=== PATIENT | male | born 1960 | race Caucasian/White ===

== ENCOUNTER 2022-05-19 12:10 | Inpatient (IN) | payer OTHER ==
[~2022-05-19] VITALS: Ht 177.8 cm; Wt 149.3 kg
[~2022-05-19 12:10] MED LIST: CYCL10 PO; HYDACE5 PO; IBUP800 PO
[2022-05-19 12:33] LABS: Hemoglobin 22.3 g/dL (13.5-17.5); IMMATURE GRAN ABSOLUTE AUTO 0.06 K/mm3 (0.00-0.10); IMMATURE GRAN PERCENT AUTO 0 % (0-1); Mean Corpuscular HGB 32.8 pg (26.0-34.0); Mean Corpuscular HGB Conc 31.9 g/dL (31.5-36.5); Mean Corpuscular Volume 103 fL (80-100); Mean Platelet Volume 9.9 fL (9.1-12.4); NRBC ABSOLUTE 0.03 K/mm3 (0.00-0.02); NRBC Auto 0.2 /100 WBC (0.0-0.2); Platelet Count 187 K/mm3 (150-400); RDW Standard Deviation 58.2 fL (35.1-46.3); Red Blood Cell Count 6.79 M/mm3 (4.30-5.90); White Blood Cell Count 13.46 K/mm3 (4.00-11.30)
[2022-05-19 12:40] LABS: PO2 Arterial 84.2 mmHg (80-100)
[2022-05-19 12:42] LABS: PCO2 Arterial 94.8 mmHg (35-45); pH Blood Arterial 7.23 (7.35-7.45)
[2022-05-19 13:11] LABS: Influenza A, PCR NEGATIVE (NEGATIVE); Influenza B, PCR NEGATIVE (NEGATIVE); Resp Syncytial Virus, PCR NEGATIVE (NEGATIVE); SARS-Cov-2 (COVID-19) PCR, MMC NEGATIVE (NEGATIVE)
[2022-05-19 13:13] LABS: BAND PERCENT MAN 1 % (0-8); BASOPHILS PERCENT MAN 0 % (0-2); EOSINOPHILS PERCENT MAN 0 % (0-6); LYMPHOCYTES % ATYPICAL MANUAL 3 % (0-0); LYMPHOCYTES PERCENT MAN 6 % (21-46); MONOCYTES PERCENT MAN 4 % (4-13); SEG NEUTROPHILS PERCENT MAN 86 % (41-73); TOTAL CELLS COUNTED 100
[2022-05-19 13:18] LABS: Source, Urine Foley catheter
[2022-05-19 13:18] LABS: BASOPHILS ABSOLUTE AUTO 0.03 K/mm3 (0.00-0.23); BASOPHILS PERCENT AUTO 0 % (0-2)
[2022-05-19 13:23] LABS: Appearance, Urine Cloudy (Clear); Blood, Urine 5+ (Neg); Color, Urine Brown (P-Yellow); Glucose Qualitative, Urine Neg (Neg); Ketones, Urine 2+ (Neg); Leukocyte Esterase, Urine 2+ (Neg); Nitrite, Urine Pos (Neg); Protein, Urine 4+ (Neg); Specific Gravity, Urine 1.015 (1.003-1.022); Urobilinogen, Urine 3+ (Normal)
[2022-05-19 13:30] LABS: Bilirubin, Urine 2+ (Neg)
[2022-05-19 13:30] LABS: Ethanol (Alcohol), Blood, Med <3 mg/dL; Magnesium, Blood 1.8 mg/dL (1.6-2.4)
[2022-05-19 13:31] LABS: Granular Casts 25-50 /lpf (0); White Blood Cells, Urine 50-100 /hpf (0-5)
[2022-05-19 13:32] LABS: Bacteria Many /hpf; Squamous Epithelial Cells Rare /hpf (Few); Transitional Epithelial Cells Few /hpf (0-Rare)
[2022-05-19 13:42] LABS: U Amphetamine Screen DETECTED; U Barbituate Screen Not Detected; U Benzodiazapine Screen Not Detected; U Buprenorphine Screen Not Detected; U Cannabinoids Screen DETECTED; U Cocaine Screen Not Detected; U Methadone Screen Not Detected; U Methamphetamine Screen DETECTED; U Opiates Screen Not Detected; U Oxycodone Screen Not Detected; U Phencyclidine Screen Not Detected; U Propoxyphene Screen Not Detected
[2022-05-19 14:02] LABS: Alanine Aminotransfer (ALT/SGP 53 U/L (12-78); Albumin, Blood 3.2 g/dL (3.4-5.0); Albumin/Globulin Ratio 0.8 (0.8-1.8); Alk Phos 122 U/L (50-136); Anion Gap 7 mmol/L (6-16); Aspartate Aminotrans (AST/SGOT 228 U/L (12-37); Bilirubin, Total 1.5 mg/dL (0.1-1.0); Blood Urea Nitrogen 23 mg/dL (8-24); Bun/Creatinine Ratio 32.2 (12.0-20.0); CO2, Blood 35 mmol/L (21-32); CPK Creatine Kinase 5216 U/L (39-308); Calcium, Blood 8.8 mg/dL (8.5-10.1); Chloride, Blood 97 mmol/L (98-108); Creatinine, Blood 0.71 mg/dL (0.60-1.20); Globulin, Blood 4.2 g/dL (2.2-4.0); Glomerular Filtration Rate 105 (60-); Glucose, Blood 106 mg/dL (70-99); Potassium, Blood 4.9 mmol/L (3.5-5.5); Sodium, Blood 139 mmol/L (136-145); Total Protein, Blood 7.4 g/dL (6.4-8.2)
[2022-05-19 14:38] LABS: Creatine Kinase MB 172.1 ng/mL (0.0-3.6); Creatine Kinase MB Index 3.3 (0.0-4.0)
--- NOTE | 2022-05-19 19:04 | NUR ---
Admit Note Received report from eric Stanley in ed. Pt to room via gurney, 4 person transfer assist with slider sheet at approx 1830. Pt to room on bipap, 16/04 bur 10 Fio2 50%, spo2 85-87%, titrated fio2 to 65%, titrated down to 60%, spo2 >90%. Pt following direction, not opening eyes or answering questions, mumbles at times. Pt body is flushed, with scabs, bruising and pustules noted. tolliver in place patent and draining. Tele sinus tach. Other Vss. No other acute changes noted. report given to oncoming rn.
[2022-05-19 19:05] LABS: Base Excess Venous 6.3 mmol/L; Bicarbonate Venous 25.9 mmol/L (24.0-30.0); PCO2 Venous 78.5 mmHg (38-42); pH Blood Venous 7.24 (7.34-7.37)
--- NOTE | 2022-05-19 22:22 | NUR ---
PATIENT ARRIVED TO ICU 14 VIA BED FROM PCU, PATIENT REMAINING PCU STATUS AT THIS TIME. PATIENT TRANSFER TO ICU BED USING SLIDER SHEET, PATIENT ATTEMPTING TO ASSIST WITH REPOSITIONING. AWAKENS TO VERBAL STIMULI FOLLOWING SIMPLE DIRECTIONS. JOHNSON. EYES AND FACE RED AND SWOLLEN. MULTIPLE BRUISING AND SCABS TO BODY, ABRASION TO LEFT SIDE. LEFT FOOT COLD TO TOUCH POOR CAP REFILL DOPPLER PULSES FOUND. RIGHT FOOT SWOLLEN AND BRIGHT RED, HOT TO TOUCH ALSO HAS DOPPLER PULSES. BIPAP 22/12 FIO2 60% IN PLACE. LUNG SOUNDS DECREASED T/O.
--- NOTE | 2022-05-19 22:28 | NUR ---
KRISTIAN (SISTER) NOTIFIED OF PT TRANSFERIGN TO ICU.
--- NOTE | 2022-05-20 00:09 | NUR ---
SHORT BREAK FROM BIPAP FOR ORAL CARE AND TO SWITCH NASAL PROBE TO LEFT NARE FROM RIGHT NARE. PLACED ON 5L/NC FOR ORAL CARE. PATIENT MO WELL. CONTINUES TO FOLLOW DIRECTIONS BUT FALLING BACK TO SLEEP EASILY
--- NOTE | 2022-05-20 02:14 | NUR ---
PATIENT AWAKE, REQUESTING SOMETHING TO DRINK AND C/O FEELING HOT. PATIENT WARM TO TOUCH AND DIAPHORETIC. GIVEN SHORT BREAK FROM BIPAP AND PLACED ON 5L/NC. PATIENT ABLE TO COUGH UP LARGE AMT OF CREAMY YELLOW SPUTUM. SAMPLE SENT TO LAB. VERBAL EASIER TO UNDERSTAND. WHEN ASKED WHAT HAPPENED PATIENT VERBALIZED THAT HE "TOOK TO MUCH DRUGS" WHEN ASKED HOW OFTEN HE TAKES METH PATIENT STATES "DAILY, BUT I DON'T DRINK" PATIENT AGREES TO REPLACE BIPAP TURNED HEATER OFF AND PLACED FAN IN ROOM
[2022-05-20 03:45] LABS: Base Excess Venous 5.1 mmol/L; Bicarbonate Venous 26.1 mmol/L (24.0-30.0); PCO2 Venous 64.7 mmHg (38-42)
[2022-05-20 03:48] LABS: Hemoglobin 20.4 g/dL (13.5-17.5); Mean Corpuscular HGB 32.9 pg (26.0-34.0); Mean Corpuscular HGB Conc 31.1 g/dL (31.5-36.5); Mean Corpuscular Volume 106 fL (80-100); Mean Platelet Volume 10.3 fL (9.1-12.4); Platelet Count 180 K/mm3 (150-400); RDW Coefficient Variation 16.5 % (11.7-14.2); RDW Standard Deviation 61.9 fL (35.1-46.3); White Blood Cell Count 12.37 K/mm3 (4.00-11.30)
[2022-05-20 04:07] LABS: Hematocrit 65.7 % (37.0-53.0)
[2022-05-20 04:15] LABS: Thyroxine (T4) 5.8 ug/dL (4.5-12.1)
[2022-05-20 04:35] LABS: Albumin, Blood 2.4 g/dL (3.4-5.0); Albumin/Globulin Ratio 0.6 (0.8-1.8); Bilirubin, Total 1.1 mg/dL (0.1-1.0); Bun/Creatinine Ratio 37.8 (12.0-20.0); Calcium, Blood 8.1 mg/dL (8.5-10.1); Creatinine, Blood 0.74 mg/dL (0.60-1.20); Globulin, Blood 4.1 g/dL (2.2-4.0); Potassium, Blood 4.2 mmol/L (3.5-5.5); Total Protein, Blood 6.5 g/dL (6.4-8.2)
--- NOTE | 2022-05-20 06:31 | NUR ---
SUMMARY PATIENT RESTING QUIETLY WITH BIPAP 22/12 FIO2 60% IN PLACE. ON 5L/NC DURING SHORT BREAK FOR ORAL CARE. PATIENT MORE AWAKE NIGHT PROGRESSED. ABLE TO ASSIST WITH REPOSITIONING, BRUSH HIS OWN TEETH WITH SUCTION TOOTHBRUSH, AND SUCTIONING HIS MOUTH OUT AFTER COUGHING WITH THICK CREAMY YELLOW SPUTUM PRODUCTION. CHAVEZ CONTINUES TO DRAIN DARK MAXWELL URINE. PERIPHERAL PERFUSION BETTER, RIGHT FOOT CONTINUES TO BE BRIGHT RED AND HOT, LEFT FOOT NOW WARM. PEDAL PULSES CONTINUE TO BE DOPPLER.
--- NOTE | 2022-05-20 17:26 | NUR ---
SHIFT SUMMARY/TRANSFER NOTE PT REMAINED ALERT TO SELF, PLACE AND FAMILY BUT DID NOT KNOW DAY, HIS MENTATION APPEARED TO IMPROVE BEING THAT HE WAS ABLE TO REPORT REMEMBERING THAT HIS NIECE WAS AT BEDSIDE AND HE ALSO REMEMBERED THAT HE MISSED BREAKFAST. SPO2 MAINTAINED >93% VIA BIPAP, PRESSURE 20/12 W/ FIO2 30-35%. PT WAS ALSO ABLE TO TOLERATE 5L NC W/ SPO2 >93% FOR ORAL CARE AND MEALS. HR WAS ST 90-100, HE CONTINUED TO DENY CHEST PAIN/PRESSURE. HE REMAINED AFEBRILE. HE REPORTED PAIN THIS AM 7/10 IN HIS LEGS AND HIS PENIS, TYLENOL GIVEN AND PT STILL REPORTED 7/10 PAIN DURING TYLENOL ASSESSMENT BUT APPEARED COMFORTABLE AND WAS ABLE TO SLEEP ON AND OFF DURING SHIFT. THIS AM PT FULLED AT CHAVEZ CATHETER, MINOR TRAUMA NOTED W/ SCANT AMOUNT OF BLEEDING BUT CHAVEZ CATHETER REMAINED IN PLACE AND DRAINING TO GRAVITY DARK YELLOW OUTPUT. BLEEDING FROM PENIS ALSO CEASED AND LATER IN SHIFT PT DENIED PAIN. Q2 TURNING IMPLIMENTED TO PREVENT SKIN BREAKDOWN. ARSEN POWERGLIDE WAS INFUSING NS @ 75ML/HR PER ORDERS. 20G IN LEFT AC WAS SALINE LOCKED, 22G IN R WRIST ALSO SALINE LOCKED. NO OTHER ACUTE CHANGES NOTED. REPORT GIVEN TO ELIU CARLSON RN AND PT TRANSFERED TO [facility] VIA HOSPITAL BED ON 5L NC.
--- NOTE | 2022-05-20 17:37 | NUR ---
CARE NOTE THIS NURSE PLACED CALL TO PT SISTER GRACIE TO NOTIFY NEXT HER OF PT TRANSFER TO [facility], THERE WAS NO VOICEMAIL SET UP AND NO ANSWER.
[2022-05-21 04:36] LABS: Hemoglobin 18.9 g/dL (13.5-17.5); Mean Corpuscular HGB 32.6 pg (26.0-34.0); Mean Corpuscular HGB Conc 30.9 g/dL (31.5-36.5); Mean Corpuscular Volume 106 fL (80-100); Mean Platelet Volume 10.1 fL (9.1-12.4); Platelet Count 162 K/mm3 (150-400); RDW Coefficient Variation 15.6 % (11.7-14.2); RDW Standard Deviation 61.3 fL (35.1-46.3); Red Blood Cell Count 5.79 M/mm3 (4.30-5.90)
[2022-05-21 04:43] LABS: Hematocrit 61.1 % (37.0-53.0)
--- NOTE | 2022-05-21 04:46 | NUR ---
PT IS ORIENTED X 2, DROWSY BUT ABLE TO AROUSE WITH NOISE. O2 SATS FLUCTUATING BETWEEN 88-92% ON BIPAP. SETTINGS NOW 18/10 AT 45% WITH SATS > 92%. HR ST IN LOW 100'S. DENIES CHEST PAIN. GENERALIZED EDEMA 1-2+. ARMS ELEVATED TO DECREASE 2+ SWELLING. IV X 2 AND POWERFLYDE FLUSH EASILY WITHOUT PAIN, NO REDDNESS NOTED AT INSERTION SITE, NO BLOOD RETURN RECEIVED. REPOSITIONED PT FOR COMFORT WITH SLING AND CEILING LIFT. CHAVEZ CATHETER IN PLACE DRAINING DARK, YELLOW URINE.
[2022-05-21 04:59] LABS: Bun/Creatinine Ratio 31.1 (12.0-20.0); Calcium, Blood 8.4 mg/dL (8.5-10.1); Creatinine, Blood 0.51 mg/dL (0.60-1.20); Potassium, Blood 4.1 mmol/L (3.5-5.5)
--- NOTE | 2022-05-21 17:21 | NUR ---
NO ACUTE CHANGES T/O THE SHIFT, PT ON AN OFF BIPAP. O2 NEEDS INCREASED TO 50% FIO2 ON BIPAP OR 10L OXYMIZER CANNULA TO MAINTAIN SP02>92%. PT NOTED TO BE DROWSY T/O THE DAY, EASILY AWOKEN, PT FOLLOWING COMMANDS, ABLE TO FEED SELF WITH SUPERVISION. SEE DOCUMENTED VS AND ASSESSMENT. CHAVEZ CATHETER REMOVED, PT INCONTINENT OF URINE, BREIF IN PLACE. WILL CONTINUE TO MONITOR AND GIVE REPORT TO NOC SHIFT RN.
[2022-05-22 03:52] LABS: Base Excess Venous 12.3 mmol/L; Bicarbonate Venous 30.6 mmol/L (24.0-30.0); PCO2 Venous 84.6 mmHg (38-42)
[2022-05-22 03:53] LABS: pH Blood Venous 7.27 (7.34-7.37)
[2022-05-22 03:58] LABS: BASOPHILS ABSOLUTE AUTO 0.04 K/mm3 (0.00-0.23); BASOPHILS PERCENT AUTO 0 % (0-2); EOSINOPHILS ABSOLUTE AUTO 0.19 K/mm3 (0.00-0.68); EOSINOPHILS PERCENT AUTO 2 % (0-6); Hemoglobin 18.9 g/dL (13.5-17.5); IMMATURE GRAN ABSOLUTE AUTO 0.02 K/mm3 (0.00-0.10); IMMATURE GRAN PERCENT AUTO 0 % (0-1); LYMPHOCYTES ABSOLUTE AUTO 1.12 K/mm3 (0.84-5.20); LYMPHOCYTES PERCENT AUTO 13 % (21-46); MONOCYTES ABSOLUTE AUTO 0.68 K/mm3 (0.16-1.47); MONOCYTES PERCENT AUTO 8 % (4-13); Mean Corpuscular HGB 32.8 pg (26.0-34.0); Mean Corpuscular HGB Conc 30.7 g/dL (31.5-36.5); Mean Corpuscular Volume 107 fL (80-100); Mean Platelet Volume 10.2 fL (9.1-12.4); NEUTROPHILS ABSOLUTE AUTO 6.88 K/mm3 (1.96-9.15); NEUTROPHILS PERCENT AUTO 77 % (41-73); Platelet Count 142 K/mm3 (150-400); RDW Coefficient Variation 15.4 % (11.7-14.2); RDW Standard Deviation 61.7 fL (35.1-46.3); Red Blood Cell Count 5.76 M/mm3 (4.30-5.90); White Blood Cell Count 8.93 K/mm3 (4.00-11.30)
[2022-05-22 04:07] LABS: Hematocrit 61.6 % (37.0-53.0)
[2022-05-22 04:48] LABS: Bun/Creatinine Ratio 27.7 (12.0-20.0); Calcium, Blood 8.5 mg/dL (8.5-10.1); Creatinine, Blood 0.47 mg/dL (0.60-1.20); Potassium, Blood 4.4 mmol/L (3.5-5.5); Thyroid Stimulating Hormone 1.79 uIU/mL (0.360-4.800)
--- NOTE | 2022-05-22 05:58 | NUR ---
NEURO/ADL: Assumed care of pt at 1900. A/Ox4 but shows confusion at times. Very mumbled/garbled speech. This progressed to patient only moaning and not being redirectable. Critical VBG pH this AM called in to Dr with new orders for repeat VBG in a few hours as RT adjusted settings. Constant moaning/groaning and moving when awake. RESP: Maintains over 92% on 10L Oxymizer or Bipap 18/10/50%., however settings changed after critical pH to 22/10/40% for which he sats 90-93%. Desats into mid 70's w/o O2, recovers quickly. LS dim t/o with coarse lower lobes bl. Tachypnea. Moist cough, able to expectorate and swallows. CARD: ST on tele low 100's. Denies CP/pressure. Faint +1 radial pulses, and doppler pedal pulses. BLE and BUE 2+ pitting edema bl, 1+ edema in face and abdomen. URINARY: Urinary incontinence with dark yellow urine noted. Attends in place, purewick added in attempts to get accurate I/O's. INTEG: Red/richy skin color t/o. Cyanotic nail beds. Abrasions and scabs noted t/o. Dr notified of scabbing pattern, Dr saw patient and placed pt in contact precautions for scabies. Permethrin ordered and applied. Orders to have dayshift bathe him, will pass this along. Blistering on abdomen and rash noted t/o. See chart for photos. Will report to dayshift RN.
[2022-05-22 06:32] LABS: Bicarbonate Venous 29.7 mmol/L (24.0-30.0); PCO2 Venous 92.4 mmHg (38-42); pH Blood Venous 7.24 (7.34-7.37)
--- NOTE | 2022-05-22 07:20 | NUR ---
INITIAL ASSESSMENT: Patient is lying in bed with his eyes closed constantly moving around. He is oriented to self only. HRR, SR in the 90s. LS DIM T/O and coarse in the bases. Patient is on the Bi-Pap settings 20/10 with FIO2 40%, biox in the mid 90s. Per the fast food shift supervisor RN patients VBG and chest X-RAY look worse this AM. BT hypoactive this am. PPP. Patient has scratches and blisters scattered through out his body. MD thinks the patient has scabies on his left wrist area, he has scattered small blisters on the top of his right wrist. Maurice placed, patent and draining clear yellow urine. Resp therapy at the bedside attempting to fix the patients seal on the mask. Bed in low position, will continue to monitor.
[2022-05-22 07:49] LABS: Source, Urine Foley catheter
[2022-05-22 07:52] LABS: Appearance, Urine Hazy (Clear); Bilirubin, Urine Neg (Neg); Blood, Urine 3+ (Neg); Color, Urine Yellow (P-Yellow); Glucose Qualitative, Urine Neg (Neg); Ketones, Urine Neg (Neg); Leukocyte Esterase, Urine Neg (Neg); Nitrite, Urine Neg (Neg); Protein, Urine 2+ (Neg); Urobilinogen, Urine NORM (Normal)
[2022-05-22 08:01] LABS: Squamous Epithelial Cells Many /hpf (Few)
[2022-05-22 08:02] LABS: Bacteria Many /hpf
[2022-05-22 08:03] LABS: Hyaline Casts 0-2 /lpf (0-2); Mucus Heavy (0-Heavy)
--- NOTE | 2022-05-22 09:45 | NUR ---
Update: Dr. Farfan has been by to see the patient. RT is concerned we are not able to keep the patients masks on and have positive pressure with the way he is moving and pulling at everything. Patient is transferred to ICU via bed. report given to Odette EMBROIDERY WORKER.
--- NOTE | 2022-05-22 09:46 | NUR ---
Patient received from PCU for escalation of care RE poor blood gas results and pt inability to keep BiPAP on. Communication Skills Instructor consulted. On arrival pt wearing BiPAP 22/10 and 40% FiO2. SpO2 90% or greater. Transferred to ICU bed using ceiling lift. Pt agitated and attempting to escape sling. Transported to bed safely. Pt's agitation continues in bed. Unable to effectively communicate needs. Precedex started. BUE soft wrist restraints applied. Bryant RN in room to assess for PICC line. SR per monitor. BP stable.
[2022-05-22 10:41] LABS: PO2 Arterial 62.9 mmHg (80-100)
[2022-05-22 10:42] LABS: pH Blood Arterial 7.28 (7.35-7.45)
[2022-05-22 10:43] LABS: PCO2 Arterial 90.8 mmHg (35-45)
--- NOTE | 2022-05-22 13:12 | NUR ---
EKG performed as there was ST elevation on telemetry. 12 lead EKG shows less than [address] elevation in lead II only. This is present on previous EKG.
--- NOTE | 2022-05-22 17:05 | NUR ---
SUMMARY This shift, patient was transfer from PCU 1 to ICU 7. Neuro/Musc: Precedex at 1 mcg/kg/hr. Pt is responsive to verbal stimulus. Able to follow simple commands. Speech is largely incomprehensible. Pt in bilateral soft wrist restraints to prevent BiPAP removal. 3 mm pupils, PERRL. Moves all extremities with equal strength and range of motion. Requires total care and ceiling lift for Q2H repositioning. Respiratory: BiPAP 22/10, 45% FiO2, set rate 20. Dry, nonproductive cough. Diminished lung sounds t/o. Cardiac: SR per monitor. Rate 68. BP stable. Capillary refill less than 3 seconds BUE and BLE. Generalized nonpitting edema. GI: NPO due to BiPAP dependence. Hypoactive BT in all quadrants. : Maurice catheter in place with output of rhonda urine. Skin: Scattered scratches, superficial wounds, and pustules. Thorough chlorhexidine bath given today. Oral care with suction swabs 1200 and 1600. Psychosocial: Family updated.
--- NOTE | 2022-05-22 21:13 | NUR ---
NOTED PT SWEATY. DENIES PAIN. ST ELEVATION ON MONITOR - EKG PERFORMED. NOTIFIED TROP AND K LAB ORDERED.
--- NOTE | 2022-05-22 22:30 | NUR ---
DR. CORREIA NOTIFIED OF LOW UO AND UPDATED ON LAB RESULTS
[2022-05-23 03:21] LABS: BASOPHILS ABSOLUTE AUTO 0.03 K/mm3 (0.00-0.23); BASOPHILS PERCENT AUTO 1 % (0-2); EOSINOPHILS ABSOLUTE AUTO 0.01 K/mm3 (0.00-0.68); EOSINOPHILS PERCENT AUTO 0 % (0-6); Hemoglobin 19.3 g/dL (13.5-17.5); IMMATURE GRAN ABSOLUTE AUTO 0.02 K/mm3 (0.00-0.10); IMMATURE GRAN PERCENT AUTO 0 % (0-1); LYMPHOCYTES ABSOLUTE AUTO 0.45 K/mm3 (0.84-5.20); LYMPHOCYTES PERCENT AUTO 7 % (21-46); MONOCYTES ABSOLUTE AUTO 0.12 K/mm3 (0.16-1.47); MONOCYTES PERCENT AUTO 2 % (4-13); Mean Corpuscular HGB 32.4 pg (26.0-34.0); Mean Corpuscular HGB Conc 30.8 g/dL (31.5-36.5); Mean Corpuscular Volume 105 fL (80-100); Mean Platelet Volume 10.5 fL (9.1-12.4); NEUTROPHILS ABSOLUTE AUTO 5.56 K/mm3 (1.96-9.15); NEUTROPHILS PERCENT AUTO 90 % (41-73); Platelet Count 151 K/mm3 (150-400); RDW Coefficient Variation 14.8 % (11.7-14.2); RDW Standard Deviation 58.7 fL (35.1-46.3); Red Blood Cell Count 5.96 M/mm3 (4.30-5.90); White Blood Cell Count 6.19 K/mm3 (4.00-11.30)
[2022-05-23 03:24] LABS: Hematocrit 62.6 % (37.0-53.0)
[2022-05-23 03:37] LABS: Bun/Creatinine Ratio 41.5 (12.0-20.0); Calcium, Blood 8.9 mg/dL (8.5-10.1); Creatinine, Blood 0.39 mg/dL (0.60-1.20); Potassium, Blood 5.7 mmol/L (3.5-5.5)
[2022-05-23 04:06] LABS: PCO2 Arterial 68.5 mmHg (35-45); PO2 Arterial 71.8 mmHg (80-100); pH Blood Arterial 7.36 (7.35-7.45)
--- NOTE | 2022-05-23 06:42 | NUR ---
PT A&OX3 - DISORIENTED TO TIME. INTERMITTENTLY PT CONFUSED FIGHTING RESTRAINTS, PULLING LINES - UNABLE TO REDIRECT BEHAVIORS. SYSTOLIC 120'S AFEBRILE LUNGS DIMINISHED ALL LOBES. ON BIPAP OVERNIGHT MANAGED BY RT CHAVEZ COLLECTING CLEAR/YELLOW URINE Q2 TURNS BONY PROMINENCES PROTECTED AND OFFLOADED. PT FREQUENTLY TURNS SELF IN BED FAMILY CALLED AND UPDATED OVER THE PHONE
--- NOTE | 2022-05-23 07:20 | NUR ---
ASSUMED CARE OF PT AT 0700 PT SLEEPING WITH BIPAP IN PLACE AT THIS TIME. PRECEDEX RUNNING AT 0.8 MCG/KG/MIN, NS RUNNING AT 75 MLS/HR. CHAVEZ DRAINING TO GRAVITY. SEE ASSESSMENT FOR FURTHER DETAILS.
--- NOTE | 2022-05-23 12:15 | NUR ---
PT FAMILY IN ROOM AT TIME OF MEDICATION ADMINISTRATION. PT HAS BEEN PARANOID WITH ALL TREATMENT THIS AM, EVEN WITH RT. PT FAMILY MEMBER DEMANDED THAT I LEAVE THE ROOM BECAUSE THE PT IS "FREAKING OUT". I CALMLY REASERTED TO THE PATIENT MY NAME AND THAT I AM HIS NURSE GIVING HIM HIS MEDICATION. I ALSO STATED TO THE FAMILY THAT THIS BEHAVIOR IS NOT NEW OF THE PT AND THAT WE NEED TO STILL GIVE HIS TREATMENT HE NEEDS IT. THIS NURSE WAS EXITING THE ROOM THE FAMILY MEMBER STATED "I SEE WHY YOU DO NOT LIKE HER". THIS RN FIRMLY STATED THAT WE NEED TO ENCOURAGE PT OF STAFF HELPING HIM AND ARE NOT OUT TO GET HIM. THIS RN ALSO STATED THAT HER BEHAVIOR WAS NOT APPROPRIATE TOWARDS STAFF AND WOULD FURTHER NEED ACTION IF IT CONTINUES. FAMILY MEMBER CAME OUT OF ROOM AND APOLOGIZED TO THIS RN IN FRONT OF DINKEY OPERATOR AND PHILIPPE SANDY.
--- NOTE | 2022-05-23 13:00 | NUR ---
PT TORE OFF BIPAP MASK AND LINES. YELLING OUT AT STAFF. PHILIPPE SANDY WAS ABLE TO CALM PT DOWN SLIGHTLY TO GET RESTRAINTS REPLACED AFTER PT TORE THEM OFF. PT GIVEN ATIVAN 1 MG AND PRESEDEX INCREASED TO 1 MCG. WILL CONTINUE TO MONITOR AND MOVE PT BACK TO BED FROM CHAIR WHEN HE IS CALM.
--- NOTE | 2022-05-23 15:04 | NUR ---
AT APPROXIMATELY 1400 PT BECAME AGGRESSIVE AND ABUSE TO STAFF MEMBERS IN ROOM. PT WAS KICKING AND THRASHING. SECURITY CALLED FOR BACKUP IF NEEDED. PHILIPPE RN, NADINE RN, AND VADIM RN WERE ABLE TO SECURE RESTRAINTS TO PT BILATERALLY UPPER AND LOWER RESTRAINTS.
[2022-05-23 16:25] LABS: Hematocrit 50.9 % (37.0-53.0); Hemoglobin 15.4 g/dL (13.5-17.5)
--- NOTE | 2022-05-23 17:51 | NUR ---
END OF SHIFT SUMMARY PT CONFUSED AND HALLUCINATING THROUGHOUT THE DAY INTERMITENTLY. PRESEDEX RUNNING AT 1 MCG/KG/MIN. NS RUNNING AT 75 MLS/HR. HR IN 70'S WHEN CALM, NEARING 100'S WHEN SCARED OR HALLUCINATING. BP ALSO RANGES DEPENDING ON THE STATE OF MIND OF THE PATIENT. AT REST PT HAS VITALS WNL. O2 SATS IN THE >92% WITH BIPAP OR NC IN PLACE AT 10L. LUNG SOUNDS DIMINISHED IN ALL LOBES. MULTIPLE EXCORIATIONS IN VARIOUS HEALING STAGES SCATTERED THROUGHOUT. ISOLATION D/T REPORT OF POSSIBLE SCABIES. FIRST TREATMENT GIVEN 05/21/2022 NIGHTSHIFT. PER PHARMACY PT SHOULD BE RECIEVING ANOTHER ROUND OF TOPICAL MEDICATION BETWEEN 3-5 DAYS AFTER FIRST DOSE. PT GIVEN BED BATH AND CHLORAHEXADINE WIPE DOWN THIS AM. CHAVEZ CATHETER DRAINING TO GRAVITY. WILL CONTINUE TO MONITOR UNTIL SHIFT CHANGE HAND OFF.
--- NOTE | 2022-05-23 18:33 | NUR ---
RECIEVED CALL FROM KALLI ELDER WHOM INTRODUCED HERSELF THE PT "LITTLE SISTER". KALLI IS REQUESTING THAT PT BE TESTED FOR TOXINS D/T RELATIONSHIP WITH PT "MALVIN". KALLI WAS INFORMED THAT SHE IS NOT ON THE LIST TO GIVE INFORMATION. SHE STATED THAT SHE WILL BE IN TOMORROW AND WOULD LIKE TO SPEAK WITH PT. VISITING HOURS WERE GIVEN. KALLI WAS VERY POLITE AND UNDERSTANDING OF ALL INFORMATION GIVEN TO HER AND ECOURAGED TO TAKE PART IN CARE IF PT WILL ALLOW IT.
[2022-05-23 20:39] LABS: Hemoglobin 19.4 g/dL (13.5-17.5)
[2022-05-23 20:41] LABS: Hematocrit 61.4 % (37.0-53.0)
[2022-05-24 00:21] LABS: Hemoglobin 19.6 g/dL (13.5-17.5)
[2022-05-24 04:21] LABS: Base Excess Venous 15.3 mmol/L; Bicarbonate Venous 34.1 mmol/L (24.0-30.0); PCO2 Venous 66.9 mmHg (38-42); pH Blood Venous 7.39 (7.34-7.37)
[2022-05-24 04:23] LABS: BASOPHILS ABSOLUTE AUTO 0.03 K/mm3 (0.00-0.23); BASOPHILS PERCENT AUTO 0 % (0-2); EOSINOPHILS PERCENT AUTO 0 % (0-6); Hemoglobin 19.8 g/dL (13.5-17.5); IMMATURE GRAN ABSOLUTE AUTO 0.03 K/mm3 (0.00-0.10); IMMATURE GRAN PERCENT AUTO 0 % (0-1); LYMPHOCYTES ABSOLUTE AUTO 0.59 K/mm3 (0.84-5.20); LYMPHOCYTES PERCENT AUTO 7 % (21-46); MONOCYTES ABSOLUTE AUTO 0.31 K/mm3 (0.16-1.47); MONOCYTES PERCENT AUTO 4 % (4-13); Mean Corpuscular HGB 33.1 pg (26.0-34.0); Mean Corpuscular HGB Conc 31.4 g/dL (31.5-36.5); Mean Corpuscular Volume 105 fL (80-100); Mean Platelet Volume 10.2 fL (9.1-12.4); NEUTROPHILS ABSOLUTE AUTO 7.36 K/mm3 (1.96-9.15); NEUTROPHILS PERCENT AUTO 88 % (41-73); Platelet Count 154 K/mm3 (150-400); RDW Coefficient Variation 14.6 % (11.7-14.2); RDW Standard Deviation 57.7 fL (35.1-46.3); Red Blood Cell Count 5.99 M/mm3 (4.30-5.90); White Blood Cell Count 8.32 K/mm3 (4.00-11.30)
[2022-05-24 04:51] LABS: Bun/Creatinine Ratio 52.2 (12.0-20.0); Creatinine, Blood 0.36 mg/dL (0.60-1.20); Potassium, Blood 5.6 mmol/L (3.5-5.5)
--- NOTE | 2022-05-24 05:35 | NUR ---
UNEVENTFUL NIGHT - PT INTERMITTENLY AGITATED RESTRAINT CONTINUED - PRECEDEX AT 1. AFEBRILE NORMOTENSIVE - DENIES CHEST PAIN OR DISCOMFORT. CHAVEZ COLLECTING YELLOW/CLEAR URINE. Q2 TURNS BONY PROMINENCES OFFLOADED AND PROTECTED. FAMILY CALLED AND UPDATED ON PT CONDITION
--- NOTE | 2022-05-24 07:15 | NUR ---
Assumed care of pt at 0715. Report received from Pa SANDY. Pt resting in bed wearing BiPAP 22/10, 40%. SpO2 90% or greater. Precedex 1 mcg/kg/hr for BiPAP tolerance and agitation.
[2022-05-24 10:21] LABS: Hemoglobin 20.1 g/dL (13.5-17.5)
[2022-05-24 10:53] LABS: Hematocrit 64.7 % (37.0-53.0)
--- NOTE | 2022-05-24 11:52 | NUR ---
Brief supportive visit this AM. Pt just medicated for agitation. Pt confused and appears significantly tense. Spoke with Primary RN Odette and reviewed plan of care. Palliative Care will F/U for therapeutic visits with Pt and family.
[2022-05-24 12:27] LABS: U Amphetamine Screen Not Detected; U Barbituate Screen Not Detected; U Benzodiazapine Screen DETECTED; U Buprenorphine Screen Not Detected; U Cannabinoids Screen Not Detected; U Cocaine Screen Not Detected; U Methadone Screen Not Detected; U Methamphetamine Screen Not Detected; U Opiates Screen DETECTED; U Oxycodone Screen Not Detected; U Phencyclidine Screen Not Detected; U Propoxyphene Screen Not Detected
--- NOTE | 2022-05-24 13:25 | NUR ---
PHLEBOTOMY: 280 ML BLOOD DRAWN FROM PICC LINE PER DR. WATERS R/T ELEVATED HEMATOCRIT. PLAN TO CHECK H&H 1 HOUR AFTER.
--- NOTE | 2022-05-24 14:04 | NUR ---
Approx 1135, this RN in to room as patient was yelling. Asked pt if he wanted his BiPAP mask removed, pt states "yes". Mask removed and patient yells "Help!! Help". Reminded patient that I am his nurse and am here to help him. Patient states he does not trust me. Pt was not wearing oxygen device. This RN encouraged patient to wear his oxymizer, however patient refused because he thought he was receiving medications through the oxygen. Dr Carbajal states he would like 5 mg haldol given. This RN enters room with medication and patient states "I swear to God I'll beat you to if you come near me with that needle". Patient made no physical attempt to harm this RN or any other staff in the room. This RN backed away and security was called. Pt attempting to get out of bed; actively loosening bilat soft wrist restraints. Security responded and patient was calmed by their presence. They talked to patient while this RN administered IV haldol. Precedex increased to 1.4 mcg/kg/hr. Bilat wrist restraints escalated from soft to locked for patient safety. Noted that pt's outbursts have been happening after pt's son visits and departs. Decision made, with agreement of ICU doctor and charge preparation technician, to restrict visitation for remainder of day.
[2022-05-24 15:15] LABS: Hemoglobin 19.6 g/dL (13.5-17.5)
[2022-05-24 15:16] LABS: Hematocrit 63.1 % (37.0-53.0)
--- NOTE | 2022-05-24 17:41 | NUR ---
SUMMARY Neuro/Musc/Psych: Pt A&O x 2. Answers questions, follows commands, verbalizes needs. Diet escalated from mechanical soft to soft, bite sized. Tolerating diet and thin liquids well without signs of aspiration. Ate 100% of breakfast and dinner. No lunch as pt received many sedating medications preceeding due to acute agitation with paranoid delusion as referenced in previous note. Pt has labile mood and quality changes between calm/cooperative and defensive, irritabile, delusional. Pt is strong and moves all extremities with equal strength and range of motion. Repositions independently in bed. Remains in TAT restraints due for safety of self to prevent removal of monitoring equipment and prevent falls. Pt easily loosens soft cuffs, especially in times of high anxiety and agitation. Pt remains on precedex at 1.4 mcg/kg/hr. Respiratory: SpO2 90% or greater with BiPAP 22/10 and 40%. Tolerates breaks from BiPAP well, wearing 6 LPM oxymizer. BiPAP breaks for oral care only, as pt frequently gets agitated in manner that resembles hypercapnia. Cardiac: SR per monitor. BP stable. Edema unchanged. Pulses, capillary refill equal BUE and BLE. GI: Diet and tolerance as mentioned above. Pt has not had BM this shift. : Maurice catheter with good urine output this shift. Skin: Unchanged from initial assessment.
--- NOTE | 2022-05-24 20:56 | NUR ---
ASSUMED CARE AT 1900 PATIENT OPENS EYES TO VERBAL STIMULI, GARBLED/MUMBLING SPEECH. ORIENTED TO SELF, VERY DIFFICULT TO UNDERSTAND. PRECEDEX INFUSING FOR AGITATION. 02 SATS 94% ON 3L VIA OXYMIZER. RR 20. LS DIMINISHED THROUGHOUT. HR SR 70s, BP STABLE. CHAVEZ PATENT AND DRAINING TO GRAVITY. CATH CARE DONE. PATIENT BOOSTED IN BED AND TURNED, PATIENT ABLE TO ASSIST. CALL LIGHT IN REACH. SEE SHIFT ASSESSMENT FOR MORE INFORMATION.
[2022-05-24 20:59] LABS: Hemoglobin 18.5 g/dL (13.5-17.5)
[2022-05-24 21:02] LABS: Hematocrit 59.2 % (37.0-53.0)
--- NOTE | 2022-05-24 23:42 | NUR ---
ORDERS FROM DR. WATERS TO DRAW 300 MLS FROM PATIENT DUE TO HIGH H&H, PICC LINE WITH MINIMAL BLOOD RETURN, CONCERNED ANOTHER PORT WILL CLOT, ATTEMPTED PERIPHERAL DRAW AND GOT A TOTAL OF 75 MLS. UNABLE TO DRAW MORE. DR. WATERS MADE AWARE. WILL REASSESS IN THE MORNING.
[2022-05-25 05:11] LABS: BASOPHILS ABSOLUTE AUTO 0.03 K/mm3 (0.00-0.23); BASOPHILS PERCENT AUTO 0 % (0-2); EOSINOPHILS ABSOLUTE AUTO 0.06 K/mm3 (0.00-0.68); EOSINOPHILS PERCENT AUTO 1 % (0-6); Hemoglobin 19.1 g/dL (13.5-17.5); IMMATURE GRAN ABSOLUTE AUTO 0.02 K/mm3 (0.00-0.10); IMMATURE GRAN PERCENT AUTO 0 % (0-1); LYMPHOCYTES ABSOLUTE AUTO 1.23 K/mm3 (0.84-5.20); LYMPHOCYTES PERCENT AUTO 15 % (21-46); MONOCYTES ABSOLUTE AUTO 0.53 K/mm3 (0.16-1.47); MONOCYTES PERCENT AUTO 6 % (4-13); Mean Corpuscular HGB Conc 31.2 g/dL (31.5-36.5); Mean Corpuscular Volume 106 fL (80-100); Mean Platelet Volume 10.5 fL (9.1-12.4); NEUTROPHILS ABSOLUTE AUTO 6.57 K/mm3 (1.96-9.15); NEUTROPHILS PERCENT AUTO 78 % (41-73); Platelet Count 133 K/mm3 (150-400); RDW Coefficient Variation 14.8 % (11.7-14.2); RDW Standard Deviation 59.7 fL (35.1-46.3); Red Blood Cell Count 5.79 M/mm3 (4.30-5.90); White Blood Cell Count 8.44 K/mm3 (4.00-11.30)
[2022-05-25 05:18] LABS: Hematocrit 61.3 % (37.0-53.0)
[2022-05-25 05:43] LABS: Albumin, Blood 2.3 g/dL (3.4-5.0); Anion Gap 1 mmol/L (6-16); Blood Urea Nitrogen 21 mg/dL (8-24); Bun/Creatinine Ratio 44.6 (12.0-20.0); CO2, Blood 39 mmol/L (21-32); Calcium, Blood 9.1 mg/dL (8.5-10.1); Chloride, Blood 102 mmol/L (98-108); Creatinine, Blood 0.47 mg/dL (0.60-1.20); Glomerular Filtration Rate 118 (60-); Glucose, Blood 119 mg/dL (70-99); Phosphorus, Blood 3.6 mg/dL (2.5-4.9); Potassium, Blood 4.6 mmol/L (3.5-5.5); Sodium, Blood 142 mmol/L (136-145)
--- NOTE | 2022-05-25 07:10 | NUR ---
SHIFT SUMMARY PATIENT RESPONDS TO VERBAL STIMULI, ORIENTED TO SELF, PLACE, AND FOLLOWING DIRECTIONS, UNABLE TO STATE YEAR OR MONTH. PRECEDEX TITRATED DOWN TO 0.5 MCG/KG/HR. PATIENT WORE BIPAP MOST THE NIGHT 16 FI02 40%. 02 SATS 98%. BACK ON 3L OXYMIZER THIS AM. HR SR 60-70s, BP STABLE. CHAVEZ PATENT AND DRAINING TO GRAVITY, 3200 OUT THIS SHIFT. PATIENT ABLE TO REPOSITION SELF, VERBAL CUES GIVEN EVERY TWO HOURS AND ASSISTANCE NEEDED. CALL LIGHT IN REACH.
--- NOTE | 2022-05-25 11:58 | NUR ---
REASSESSMENT PT HAS BEEN SLEEPING WHEN LEFT UNDISTURBED, WAKES EASILY TO VOICE. ORIENTED TO PERSON AND PLACE. HE HAS BEEN CALM AND COOPERATIVE. TRIALLED OUT OF RESTRAINTS THIS MORNING AND PT DID WELL SO RESTRAINTS DISCONTINUED. VISITORS HELD FOR NOW THEY HAVE BEEN AGITATING PT DURING PAST VISITS, BUT UPDATED PT'S SISTER DERRICK VIA TC. SHE WAS AGREEBLE TO HOLDING VISITORS TODAY TO SEE IF HE IS ABLE TO HAVE A DAY WITHOUT AGITATION. PRECEDEX BEING TITRATED DOWN. LUNGS HAVE AN EXPIRATORY WHEEZE. ON 3L OXYMIZER AT REST, NEEDS UP TO 6L WITH ACITIVITY SUCH EATING OR MOVING HIMSELF AROUND IN BED. SR, BP STABLE. BOWEL CARE ORDERED PER DR. RUSSO PT HASN'T HAD BM RECORDED SINCE ADMIT. CONTINUING TO MONITOR.
--- NOTE | 2022-05-25 17:06 | NUR ---
SHIFT SUMMARY PT'S ALERTNESS HAS INCREASED THROUGHOUT THE DAY. HE HAS REMAINED CALM AND COOPERATIVE WITHOUT ANY HALLUCINATIONS OR DELIRIUM. PRECEDEX WAS TITRATED DOWN FROM 0.5 MCG/KG/HR TO 0.2MCG/KG/HR THROUGHOUT THE DAY. HR HAS INCREASED SLIGHTLY HAS PRECEDEX WAS TURNED DOWN AND IS SINUS IN THE LOW 100S. BP STABLE. LUNGS HAVE EXPIRATORY WHEEZES. PT HAS MOIST COUGH, PRODUCED SOME THICK WHITE/YELLOW SPUTUM THIS AFTERNOON. PT IS EATING ALL OF HIS MEALS AND SNACKS IN BETWEEN. CHAVEZ WITH CL YELLOW DRAINAGE. PT'S SKIN IS UNCHANGED - RED WITH MULTIPLE ABRASIONS AND EXCORIATIONS. PICC LINE NURSE EXAMINED PT'S PICC THE RED PORT WAS NOT WORKING WELL. DRESSING CHANGED AND ALL LINES NOW FLUSH AND DRAW. DR. WATERS GAVE OK TO TAKE OFF 200ML IN ORDER TO GET THE FULL UNITO OF BLOOD OFF THAT HE HAD ORDERED LAST NIGHT.
--- NOTE | 2022-05-25 20:11 | NUR ---
ASSUMED CARE AT 1900 PATIENT IS ALERT AND ORIENTED X3-4, SLOW TO RESPOND TO SOME QUESTIONS. PLEASANT AND COOPERATIVE WITH CARE, ANXIOUS AT TIMES. PRECEDEX INFUSING. 02 SATS 93% ON 5L OXYMIZER. BIPAP WHILE SLEEPING 16/10 40%, LS DIMINISHED T/O. HR ST 100-120, BP STABLE, PATIENT DENIES CP/PRESSURE. CHAVEZ PATENT AND DRAINING TO GRAVITY, CLEAR YELLOW URINE. PATIENT ABLE TO REPOSITION SELF, VERBAL CUES AND ASSISTANCE NEEDED. CATHETER CARE DONE. CALL LIGHT IN REACH. SEE SHIFT ASSESSMENT FOR MORE INFORMATION.
--- NOTE | 2022-05-25 20:54 | NUR ---
PATIENT CALLING OUT, INCREASING AGITATION AND ANXIETY. PRECEDEX INCREASED.
[2022-05-26 03:23] LABS: BASOPHILS ABSOLUTE AUTO 0.04 K/mm3 (0.00-0.23); BASOPHILS PERCENT AUTO 1 % (0-2); EOSINOPHILS ABSOLUTE AUTO 0.16 K/mm3 (0.00-0.68); EOSINOPHILS PERCENT AUTO 2 % (0-6); IMMATURE GRAN ABSOLUTE AUTO 0.02 K/mm3 (0.00-0.10); IMMATURE GRAN PERCENT AUTO 0 % (0-1); LYMPHOCYTES ABSOLUTE AUTO 1.63 K/mm3 (0.84-5.20); LYMPHOCYTES PERCENT AUTO 23 % (21-46); MONOCYTES ABSOLUTE AUTO 0.54 K/mm3 (0.16-1.47); MONOCYTES PERCENT AUTO 8 % (4-13); Mean Corpuscular HGB 32.8 pg (26.0-34.0); Mean Corpuscular HGB Conc 30.5 g/dL (31.5-36.5); Mean Corpuscular Volume 107 fL (80-100); Mean Platelet Volume 10.2 fL (9.1-12.4); NEUTROPHILS ABSOLUTE AUTO 4.69 K/mm3 (1.96-9.15); NEUTROPHILS PERCENT AUTO 66 % (41-73); Platelet Count 122 K/mm3 (150-400); RDW Coefficient Variation 14.9 % (11.7-14.2); RDW Standard Deviation 60.4 fL (35.1-46.3); Red Blood Cell Count 5.19 M/mm3 (4.30-5.90); White Blood Cell Count 7.08 K/mm3 (4.00-11.30)
[2022-05-26 03:25] LABS: Hematocrit 55.7 % (37.0-53.0)
[2022-05-26 03:40] LABS: Albumin, Blood 2.1 g/dL (3.4-5.0); Albumin/Globulin Ratio 0.7 (0.8-1.8); Bilirubin, Total 0.4 mg/dL (0.1-1.0); Calcium, Blood 8.6 mg/dL (8.5-10.1); Creatinine, Blood 0.52 mg/dL (0.60-1.20); Globulin, Blood 3.2 g/dL (2.2-4.0); Phosphorus, Blood 3.7 mg/dL (2.5-4.9); Potassium, Blood 4.3 mmol/L (3.5-5.5); Total Protein, Blood 5.3 g/dL (6.4-8.2)
--- NOTE | 2022-05-26 05:16 | NUR ---
SHIFT SUMMARY PATIENT IS ALERT AND ORIENTED X3-4, SOME ANXIETY AND AGITATION THROUGH THE NIGHT, PRECEDEX INFUSING MOST THE SHIFT. TITRATED OFF THIS AM. 02 SATS >93% ON BIPA WHILE SLEEPING, 5L 0XYMIZER WHILE AWAKE. COARSE COUGH BUT NON PRODUCTIVE. HR SR 80s, BP STABLE. CHAVEZ PATENT AND DRAINING TO GRAVITY. PATIENT ABLE TO REPOSITION SELF, VERBAL CUES AND REMINDERS NEEDED. CALL LIGHT IN REACH.
--- NOTE | 2022-05-26 10:11 | NUR ---
PT A/O X4. HAS GENERALIZED PAIN ALL OVER BODY. HAS BEEN PLEASANT AND COOPERATIVE. OOB TO CHAIR WITH MINIMAL ASSIST. GETS SOB WITH EXERTION BUT DOES NOT DESAT ON OXYMIZER. HAS SCABBING RED RASH ALL OVER BODY AND EXCORIATION TO SCROTUM. TREATED FOR SCABIES. GAVE BED BATH AND CHANGED LINEN. WITHOLDING CHG BATH DUE TO SCABS AND SKIN CONDITION. NO SIGN OF DISTRESS. PT IS USING CALL LIGHT APPROPRIATELY.
--- NOTE | 2022-05-26 17:52 | NUR ---
SUMMARY PT A/O X4. PLEASANT AND COOPERATIVE. HAD SOME ANXIETY IN THE MIDDLE OF THE DAY. GAVE ATIVAN AND PT WAS ABLE TO SLEEP FOR A BIT AND IS NOW CALM. OOB TO CHAIR WITH MINIMAL ASSIST. STEADY ON FEET JUST NEEDS HELP WITH CORDS AND LINES. TOLERATING MEALS WELL. DESATTED TODAY WHILE HAVING AN EXTRA LARGE BM BUT OTHERWISE HAS DONE WELL. NO ACUTE CHANGES THIS SHIFT.
--- NOTE | 2022-05-26 19:30 | NUR ---
PATIENT AWAKE. SPEECH DIFFICULT TO UNDERSTAND AT TIMES. ABLE TO EAT 100% OF DINNER, CONTINUES TO FEEL HUNGRY REQUESTING ICE CREAM. SOB WITH ACTIVITY RESP HIGH 20'S TO 30'S. BIOX 94% ON 7L/OXY.
--- NOTE | 2022-05-27 01:00 | NUR ---
PATIENT PULLING OFF BIPAP AND RESTLESS . BIOX 88% REMOVING OXYMIZER ALSO. HALDOL GIVEN AND BIPAP REPLACED
[2022-05-27 05:30] LABS: BASOPHILS ABSOLUTE AUTO 0.04 K/mm3 (0.00-0.23); BASOPHILS PERCENT AUTO 1 % (0-2); EOSINOPHILS ABSOLUTE AUTO 0.26 K/mm3 (0.00-0.68); EOSINOPHILS PERCENT AUTO 4 % (0-6); Hematocrit 54.3 % (37.0-53.0); Hemoglobin 16.4 g/dL (13.5-17.5); IMMATURE GRAN ABSOLUTE AUTO 0.02 K/mm3 (0.00-0.10); IMMATURE GRAN PERCENT AUTO 0 % (0-1); LYMPHOCYTES PERCENT AUTO 19 % (21-46); MONOCYTES ABSOLUTE AUTO 0.75 K/mm3 (0.16-1.47); MONOCYTES PERCENT AUTO 10 % (4-13); Mean Corpuscular HGB 32.8 pg (26.0-34.0); Mean Corpuscular HGB Conc 30.2 g/dL (31.5-36.5); Mean Corpuscular Volume 109 fL (80-100); Mean Platelet Volume 10.7 fL (9.1-12.4); NEUTROPHILS ABSOLUTE AUTO 4.77 K/mm3 (1.96-9.15); NEUTROPHILS PERCENT AUTO 66 % (41-73); Platelet Count 139 K/mm3 (150-400); RDW Coefficient Variation 14.9 % (11.7-14.2); RDW Standard Deviation 61.7 fL (35.1-46.3); White Blood Cell Count 7.24 K/mm3 (4.00-11.30)
[2022-05-27 05:45] LABS: PO2 Arterial 75.8 mmHg (80-100); pH Blood Arterial 7.31 (7.35-7.45)
[2022-05-27 05:46] LABS: PCO2 Arterial 90.8 mmHg (35-45)
[2022-05-27 05:53] LABS: Albumin, Blood 2.4 g/dL (3.4-5.0); Albumin/Globulin Ratio 0.7 (0.8-1.8); Bilirubin, Total 0.4 mg/dL (0.1-1.0); Bun/Creatinine Ratio 24.4 (12.0-20.0); Calcium, Blood 8.5 mg/dL (8.5-10.1); Creatinine, Blood 0.45 mg/dL (0.60-1.20); Globulin, Blood 3.3 g/dL (2.2-4.0); Magnesium, Blood 1.7 mg/dL (1.6-2.4); Phosphorus, Blood 2.4 mg/dL (2.5-4.9); Potassium, Blood 4.5 mmol/L (3.5-5.5); Total Protein, Blood 5.7 g/dL (6.4-8.2)
--- NOTE | 2022-05-27 06:37 | NUR ---
TALKING WITH JARON IN INFECTION CONTROL AND WITH [facility] REGARDING ISOLATION FOR SCABIES. PATIENT IS NOW OUT OF CONTACT ISOLATION.
--- NOTE | 2022-05-27 06:39 | NUR ---
SUMMARY PATIENT ON AND OFF BIPAP T/O NIGHT. NEEDING FREQUENT ADJUSTMENT OF MASK T/O NIGHT. PATIENT SLEEPING AND LESS RESTLESS AFTER HALDOL GIVEN. ON 7L/OXY WHEN OFF BIPAP. PATIENT FEEDING SELF SNACK OF PUDDING AND PEPSI WITHOUT DIFFICULTY. WHEN AWAKE PATIENT REPOSITIONING SELF IN BED CONSTANTLY, ABLE TO BOOST SELF UP TO TOP OF BED WITH VERBAL CUES FROM STAFF. SPEECH CONTINUES TO BE GARBLED OFF AND ON BUT APPEARS TO BE A&O X3. LAB DRAW VIA PICC LINE WITHOUT DIFFICULTY THIS AM, ALL 3 PORTS FLUSHING EASILY. PATIENT NO LONGER IN CONTACT ISOLATION
[2022-05-27 13:07] LABS: PCO2 Arterial 88.4 mmHg (35-45); pH Blood Arterial 7.34 (7.35-7.45)
--- NOTE | 2022-05-27 17:48 | NUR ---
SHIFT SUMMARY: PT SLEPT T/OUT THE MORNING, WAS PLACED ON BIPAP AND TOLERATED FOR APPROX 4 HOURS THEN BECAME MORE ALERT, REQUESTING FOOD AND DRINK. PT TRANSITIONED BACK TO OXYMIZER AT 7 L/MIN, O2 SATS MAINTAINED >90%. WHILE AWAKE, PT WILL ANSWER QUESTIONS W/GARBLED SPEECH, ASSISTS IN REPOSITIONING HIMSELF. PT UP TO BEDSIDE RECLINER FOR ABOUT 2 HOURS THIS AFTERNOON, CURRENTLY BACK IN BED. INDWELLING CHAVEZ PATENT, DRAINING TO GRAVITY, LARGE AMOUNT OF URINE OUTPUT THIS SHIFT. REPEAT ABG COMPLETED THIS AFTERNOON W/MARGINAL IMPROVEMENT. PARTIAL BEDBATH COMPLETED THIS AFTERNOON. AT THIS TIME, PT RESTING QUIETLY IN BED W/TV ON AND CALL LIGHT WITHIN REACH.
--- NOTE | 2022-05-27 19:35 | NUR ---
PATIENT AWAKE HAD A GOOD VISIT WITH A FRIEND, WHILE TALKING BIOX DOWN TO 88% ON 7L/OXY. PATIENT ENCOURAGED TO COUGH AND DEEP BREATH BIOX UP TO 91% ON 7L/OXY. I WAS REMOVING DINNER TRAY PATIENT ASKING FOR A SNACK OF ICE CREAM AND PEPSI. PATIENT FEEDING SELF WITHOUT DIFFICULTY. PATIENT VERBALIZED THAT HE IS FEELING RESTLESS AND WANTING SOMETHING TO HELP HIM SLEEP. PLAN TO PLACE BIPAP WHEN READY FOR SLEEP. PATIENT ABLE TO REPOSITION SELF IN BED WITH VERBAL DIRECTION. PATIENTS SPEECH CONTINUES TO BE GARBLED AND DIFFICULT TO UNDERSTAND AT TIMES.
--- NOTE | 2022-05-27 20:32 | NUR ---
PATIENT ANXIOUS AND RESTLESS, YELLING OUT FOR "HELP TO RELAX" WITH INCREASED ANXIETY BIOX DROPPING TO LOW 80'S, ATTEMPT TO PLACE BIPAP AND PATIENT BECOMING MORE ANXIOUS AND ANGRY. HALDOL IV GIVEN. CONTINUES TO ATTEMPT TO PUT LEGS OUT OF BED AND RESTLESS. ATIVAN IV GIVEN
--- NOTE | 2022-05-27 21:05 | NUR ---
PATIENT MORE RELAXED PLACED ON BIPAP BY KATHLEEN RT, PATIENT MO WELL AT THIS TIME
--- NOTE | 2022-05-28 00:46 | NUR ---
PATIENT REMOVING BIPAP, FOR SHORT BREAK ON 7L/OXY. BIPAP REPLACED AFTER APROX 30 MIN. PATIENT APPEARS TO BE MO BIPAP WELL. PATIENT VERBALIZED THAT HE IS FEELING MORE RELAXED, FALLING BACK TO SLEEP WITH BIPAP IN PLACE
--- NOTE | 2022-05-28 03:30 | NUR ---
PATIENT AWAKE REQUESTING BREAKFAST, SNACK OF PUDDING AND CANDY THAT WAS IN THE ROOM GIVEN. CHANGED OXYMIZER TO HIGH FLOW NASAL CANULA WITH HUMIDIFIER TO MAKE WEARING N/C MORE COMFORTABLE.
[2022-05-28 05:04] LABS: Albumin, Blood 2.3 g/dL (3.4-5.0); Anion Gap 1 mmol/L (6-16); Blood Urea Nitrogen 13 mg/dL (8-24); Bun/Creatinine Ratio 25.8 (12.0-20.0); CO2, Blood 45 mmol/L (21-32); Calcium, Blood 8.5 mg/dL (8.5-10.1); Chloride, Blood 94 mmol/L (98-108); Glomerular Filtration Rate 116 (60-); Glucose, Blood 175 mg/dL (70-99); Potassium, Blood 4.3 mmol/L (3.5-5.5); Sodium, Blood 140 mmol/L (136-145)
[2022-05-28 05:35] LABS: PO2 Arterial 66.5 mmHg (80-100)
[2022-05-28 05:37] LABS: PCO2 Arterial 99.5 mmHg (35-45); pH Blood Arterial 7.28 (7.35-7.45)
--- NOTE | 2022-05-28 06:04 | NUR ---
DUE TO CRITICAL ABG RESULTS THIS MORNING PATIENT PLACED BACK ON BIPAP 18/10 FIO2 35% PATIENT AWAKE AND REQUESTING BREAKFAST. PATIENT AGREEING TO WEAR BIPAP UNTIL BREAKFAST ARRIVES
--- NOTE | 2022-05-28 06:33 | NUR ---
SUMMARY PATIENT WEARING BIPAP FROM . THEN WAS ON 7L/NC. PATIENT PLACED BACK ON BIPAP 18/10 FIO2 35% AFTER CRITICAL ABG RESULTS OBTAINED. NEEDING BIPAP MASK TO BE REPOSITIONED FREQUENTLY. PATIENT REPOSITIONING SELF IN BED FOR COMFORT T/O NIGHT. PATIENT VERBALIZING THAT HE IS WANTING TO GO HOME. CONTINUES TO FEEL ANXIOUS AND RESTLESS.
--- NOTE | 2022-05-28 09:27 | NUR ---
PT A/O TO PERSON, PLACE, MONTH AND YEAR. PT ABLE TO BOOST SELF UP IN BED AND CONSTANTLY SHIFTS IN BED. FOR BREAKFAST PT HAD TO BOOST UP 3X WITH PROMPTING FROM THIS RN HE SCOOTS HIMSELF BACK DOWN. PT EATS QUICKLY AND NEEDS REMINDERS TO SLOW DOWN. AFTER HE ATE BREAKFAST TRAY THAT HAS DOUBLE PORTIONS, SON BROUGHT IN 2 Dick or Bro BREAKFAST SANDWICHES THAT PT ATE WELL. PT ASKING WHEN HE GETS TO GO HOME. EDUCATED PT THAT HE IS REQUIRING A LOT OF OXYGEN AND BIPAP. ASKED PT IF HE IS WILLING TO WEAR BIPAP AT HOME FOR PROBABLY THE REST OF HIS LIFE. PT STATES "I CAN'T DO THAT", RN EDUCATED PT THAT HE COULD WITHOUT WEARING THE BIPAP PT STATES "IF THAT'S WHAT HAPPENS, THAT'S WHAT HAPPENS." WILL TOUCH BASE WITH PALLIATIVE CARE TODAY. PT YELLS OUT WHEN HE NEEDS ASSISTANCE.
--- NOTE | 2022-05-28 10:58 | NUR ---
PT IS INCREASINGLY AGITATED. ONLY ABLE TO WEAR BIPAP FOR MAYBE HALF HOUR BEFORE RIPPING IT OFF. GOT PT TO CHAIR PER HIS REQUEST. GAVE HALDOL FOR AGITATION. PT STATES "I'M FUCKING DONE WITH THIS." DR. VELASQUEZ IN TO SEE PT AND REORDERED SEROQUEL. WILL GET PT BACK TO BED AFTER BED BATH AND TRY TO GET HIM TO WEAR BIPAP.
[2022-05-28 14:10] LABS: PO2 Arterial 85.4 mmHg (80-100); pH Blood Arterial 7.31 (7.35-7.45)
[2022-05-28 14:11] LABS: PCO2 Arterial > 105 mmHg (35-45)
--- NOTE | 2022-05-28 15:37 | NUR ---
THIS AFTERNOON FOUND PT WITH VOMIT DOWN HIS GOWN. DID NOT HAVE HIS BIPAP ON AT THE TIME. SUCTIONED MOUTH OUT AND SAT PT UP IN BED. CALLED DR. VELASQUEZ WHO ORDERED ABG AND TO INVOLVE DR. GOMEZ AGAIN. CO2 GREATER THAN 105. DR. GOMEZ WANTS NG PLACED TO LIS AND TO PLACE BIPAP. IN ORDER TO GET NG TUBE IN AND TO REMAIN IN PLACE PT REQUIRES TAT RESTRAINTS AND ATIVAN, BECAUSE HE IS LESS RESPONSIVE AND IMMEDIATELY TRIES TO PULL NG OUT. DR. GOMEZ OK WITH STARTING PRECEDEX AGAIN. BIPAP ON NOW. PT RESTING QUIETLY ON BIPAP.
--- NOTE | 2022-05-28 18:41 | NUR ---
SUMMARY PT RESTING ON BIPAP. NOW ON PRECEDEX TO KEEP BIPAP ON AND NG IN. DR. GOMEZ ORDERED NG TO KEEP PT FROM VOMITING WHILE ON BIPAP. CO2 WAS GREATER THAN 105 THIS AFTERNOON. PLAN IS TO LET PT REST ON BIPAP FOR TONIGHT AND ASSESS MENTAL STATUS AND ABG IN AM. PT IS TO REMAIN NPO. PALLIATIVE CARE WAS ALERTED TO CASE. REMAINS IN TAT RESTRAINTS DUE TO PT BEING VERY STRONG AND WILL BREAK REGULAR RESTRAINTS. BEFORE BIPAP AND PRECEDEX PT WAS ABLE TO GET TO RECLINER CHAIR THIS AM WITH ONE PERSON ASSIST. WAS UP IN CHAIR ABOUT AN HOUR BEFORE HE BECAME TOO RESTLESS. NO OTHER CHANGES SINCE PREVIOUS NOTES.
--- NOTE | 2022-05-28 20:08 | NUR ---
PATIENT SLEEPING WITH BIPAP 18/10 FIO2 35% IN PLACE. AWAKENS TO SLIGHT STIMULI, FOLLOWING SIMPLE DIRECTIONS, ASSISTING WITH REPOSITIONING. FALLING BACK TO SLEEP WHEN UNDISTURBED. PRECEDEX 0.6 MCG INFUSING TO HELP PATIENT MO BIPAP. NG IN PLACE TO LIS DRAINING LIGHT BROWN BILE. BILAT TUFF CUFF IN PLACE TO REMIND PATIENT NOT TO PULL OUT NG AND TO KEEP BIPAP IN PLACE. PATIENT NEEDING TUFF CUFF BECAUSE OF THE SIZE OF HIS WRISTS AND HIS STRENGTH. PATIENT IS UNPREDICTABLE AND IMPULSIVE WITH HIS BEHAVIOR.
--- NOTE | 2022-05-28 21:08 | NUR ---
DOCTOR PATRICIA VERBALIZED TO KEEP NG TO LIS T/O NIGHT AND TO HOLD PO MEDICATIONS TONIGHT. WILL REEVALUATE IN THE MORNING.
--- NOTE | 2022-05-29 00:50 | NUR ---
PATIENT RESTLESS AND ANGRY THAT HE CAN'T HAVE ANYTHING PO. SHACKING HIS HEAD BACK AND FORTH HARD ENOUGH TO SHIFT BIPAP, AND PUSHES BOTTOM LIP OUT THE BOTTOM OF THE MASK. DURING SHORT BREAK FOR ORAL CARE PATIENT ASKING WHEN HE CAN GO HOME. EXPLAINED TO PATIENT THAT WITHOUT THE BIPAP HIS CO2 GOES UP AND HE BECOMES CONFUSED AND PASSES OUT. PATIENT VERBALIZED THAT HE DOESN'T REMEMBER VOMITING THIS MORNING. WHEN ASKED PATIENT IF HE WOULD WEAR THE BIPAP AT HOME HE STATES "NO I WON'T DO THAT" WHEN ASKED WHY HE STATES THAT HE HATES THE BIPAP. PATIENT GIVEN HALDOL TO HELP HIM RELAX AND PRECEDEX CONTINUES.
--- NOTE | 2022-05-29 04:00 | NUR ---
PATIENT DIAPHORETIC, RANDOM GLUCOSE CHECK 127. PARTIAL BED BATH GIVEN AND LINEN CHANGED PATIENT VERBALIZED THAT HE IS FEELING OK, BUT HUNGRY. PATIENT ANGRY THAT HE HAS TO WEAR BIPAP, "WELL KNOCK ME OUT THEN" . PRECEDEX CONTINUES.
[2022-05-29 04:13] LABS: PO2 Arterial 55.1 mmHg (80-100)
[2022-05-29 04:14] LABS: PCO2 Arterial 84.5 mmHg (35-45)
[2022-05-29 04:16] LABS: Hemoglobin 16.9 g/dL (13.5-17.5); Mean Corpuscular HGB 32.1 pg (26.0-34.0); Mean Corpuscular HGB Conc 29.9 g/dL (31.5-36.5); Mean Corpuscular Volume 107 fL (80-100); Mean Platelet Volume 11.1 fL (9.1-12.4); Platelet Count 123 K/mm3 (150-400); RDW Coefficient Variation 14.3 % (11.7-14.2); RDW Standard Deviation 58.1 fL (35.1-46.3); Red Blood Cell Count 5.27 M/mm3 (4.30-5.90); White Blood Cell Count 7.19 K/mm3 (4.00-11.30)
[2022-05-29 04:17] LABS: Hematocrit 56.6 % (37.0-53.0)
[2022-05-29 04:46] LABS: Albumin, Blood 2.4 g/dL (3.4-5.0); Anion Gap Unable to Calculate mmol/L (6-16); Blood Urea Nitrogen 11 mg/dL (8-24); Bun/Creatinine Ratio 29.3 (12.0-20.0); Calcium, Blood 9.1 mg/dL (8.5-10.1); Chloride, Blood 93 mmol/L (98-108); Creatinine, Blood 0.38 mg/dL (0.60-1.20); Glomerular Filtration Rate 126 (60-); Glucose, Blood 101 mg/dL (70-99); Phosphorus, Blood 1.8 mg/dL (2.5-4.9); Potassium, Blood 4.4 mmol/L (3.5-5.5); Sodium, Blood 140 mmol/L (136-145)
[2022-05-29 04:49] LABS: CO2, Blood >45 mmol/L (21-32)
--- NOTE | 2022-05-29 06:53 | NUR ---
SUMMARY PATIENT SLEEPING T/O NIGHT WITH BIPAP 18/10 FIO2 35% WITH SHORT BREAK ON 7L/NC FOR ORAL CARE. BIPAP MASK NEEDING TO BE READJUSTED FREQUENTLY T/O NIGHT DUE TO PATIENT PUTTING HIS BOTTOM LIP OUT OF MASK. OG DRAINING YELLOW BILE. PATIENT ANGRY THAT HE CAN'T LEAVE BIPAP OFF AND BE ABLE TO EAT. PATIENT ANGRY THAT HANDS ARE RESTRAINED TO KEEP PATIENT FROM PULLING OFF BIPAP AND PULLING OUT NG.
--- NOTE | 2022-05-29 09:09 | NUR ---
PT IS AWAKE THIS AM. USING CALL LIGHT APPROPRIATELY. A/O TO PERSON, PLACE, MONTH AND YEAR. DR. TEJEDA SAID OK TO FEED PT BUT LEAVE NG IN FOR NOW. PT IS HAVING APPROPRIATE CONVERSATIONS. HE ASKED IF RN COULD MOVE THE MONITOR TO WHERE HE COULD SEE IT IN THE MIRROR WHILE HE EATS THAT WAY HE KNOWS IF HIS SPO2 IS GETTING LOW. WHEN SPO2 DROPS PT STOPS EATING AND RECOVERS SPO2. PT VOICES CONCERNS ABOUT NOT WANTING TO BE HERE AND NOT WANTING TO WEAR BIPAP. SPOKE WITH PT ABOUT NEEDING BIPAP OR HE COULD PASS AWAY. PALLIATIVE CARE NOTIFIED THAT PT IS AWAKE AND ORIENTED THIS AM AND NEED FOR CONVERSATION ABOUT CARE PLAN. PT IS SITTING UP CALMLY IN BED, NOT THRASHING AROUND OR FREQUENTLY CHANGING POSITION. HAVE NOT HAD TO BOOST PT UP IN BED MULTIPLE TIMES WHILE EATING HE HAS IN THE PAST. THIS IS THE CALMEST THIS RN HAS SEEN PT. PT IS ON 0.6MCG OF PRECEDEX. OUT OF RESTRAINTS AND IS COOPERATIVE WITH LEAVING NG IN PLACE.
--- NOTE | 2022-05-29 12:14 | NUR ---
DR. TEJEDA OK WITH NG TUBE COMING OUT. REMOVED WITHOUT ISSUE. PT APPROPRIATE AND TOLERATING FOOD WELL.
--- NOTE | 2022-05-29 16:32 | NUR ---
PT REMOVED HIS OWN FRONT BOTTOM TOOTH BECAUSE IT WAS BOTHERING HIM.
--- NOTE | 2022-05-29 18:22 | NUR ---
SUMMARY PT A/O TO PERSON, PLACE, MONTH AND YEAR. PLEASANT AND COOPERATIVE ALL DAY. PT HAS BEEN ON NC MOST OF THE DAY WITH EXCEPTION TO A NAP THIS AFTERNOON FOR ABOUT A HALF HOUR. PT REQUESTS MEDS TO SLEEP DURING THE DAY BUT EDUCATED HIM THAT WE SHOULD TRY TO STAY AWAKE DURING THE DAY AND SLEEP WITH BIPAP ON AT NIGHT. PT WAS AGREEABLE. PT STATES HE IS GOING TO BE COMPLIANT WITH BIPAP AT HOME. EDUCATED ABOUT RISKS OF NOT WEARING BIPAP. BEFORE HIS NAP THIS AFTERNOON PT BECAME VERY RESTLESS AND WAS STARTING TO THRASH AROUND IN BED. EDUCATED PT THAT HIS CO2 WAS PROBABLY CLIMBING AND THAT IS WHY HE IS GETTING RESTLESS. THIS RN HAS SEEN THIS RESTLESS BEHAVIOR IN PRIOR SHIFTS. AFTER WEARING BIPAP FOR NAP PT WOKE UP PLEASANT, COOPERATIVE, AND CALM. TOLERATES MEALS AND EXTRA FOOD FAMILY PROVIDES. PT GOT UP AND WALKED IN THE ROOM WITH PHYSICAL THERAPY TODAY AND DID WELL. ABLE TO BOOST SELF UP IN BED AND REPOSITIONS INDEP. PT WAS APPROVED FOR [facility] FROM [facility] AND THEY WILL BE HERE TONIGHT TO SET IT UP FOR HIM. O2 REQUIREMENTS DOWN SIGNIFICANTLY TODAY. COUGHING UP THICK SPUTUM WITHOUT DIFFICULTY. USING CALL LIGHT APPROPRIATELY. NO SIGN OF DISTRESS.
--- NOTE | 2022-05-29 19:15 | NUR ---
ASSUMED CARE OF PT @1915. PT RESTING COMFORTABLY IN BED FINISHING DINNER. PT IS PLEASANT AND ORIENTED TO SELF, PLACE, AND SITUATION. O2 VIA NC 4L/MIN. SPO2 >92%. RR 30. PRECEDEX 0.7. CHAVEZ CATH PATENT AND DRAINING TO GRAVITY.
--- NOTE | 2022-05-30 | NUR ---
PT SET UP ON THE EDGE OF THE BED W/O2 VIA NC. ATE AND PERFORMED OWN ORAL CARE. PT REPOSITIONED SELF IN BED. TRILOGY MASK IN PLACE. PT EXPERIENCING MODERATE ANXIETY. ATIVAN GIVEN. PT RELAXED AND RESTING COMFORTABLY.
--- NOTE | 2022-05-30 01:59 | NUR ---
PT RESTLESS WITH TRILOGY MASK IN PLACE. PT REMOVES IT AND THEN VERBALIZES AN APOLOGY AND IS COMPLIANT WITH THE MASK. PT ASKS FOR "SOMETHING TO MAKE HIM MORE COMFORTABLE." HALDOL GIVEN. PT WEARING MASK AND APPEARS MORE COMFORTABLE.
[2022-05-30 04:06] LABS: BASOPHILS ABSOLUTE AUTO 0.05 K/mm3 (0.00-0.23); BASOPHILS PERCENT AUTO 1 % (0-2); EOSINOPHILS ABSOLUTE AUTO 0.34 K/mm3 (0.00-0.68); EOSINOPHILS PERCENT AUTO 5 % (0-6); Hemoglobin 16.4 g/dL (13.5-17.5); IMMATURE GRAN ABSOLUTE AUTO 0.02 K/mm3 (0.00-0.10); IMMATURE GRAN PERCENT AUTO 0 % (0-1); LYMPHOCYTES ABSOLUTE AUTO 1.33 K/mm3 (0.84-5.20); LYMPHOCYTES PERCENT AUTO 19 % (21-46); MONOCYTES ABSOLUTE AUTO 0.57 K/mm3 (0.16-1.47); MONOCYTES PERCENT AUTO 8 % (4-13); Mean Corpuscular HGB 32.7 pg (26.0-34.0); Mean Corpuscular HGB Conc 30.4 g/dL (31.5-36.5); Mean Corpuscular Volume 108 fL (80-100); NEUTROPHILS ABSOLUTE AUTO 4.61 K/mm3 (1.96-9.15); NEUTROPHILS PERCENT AUTO 67 % (41-73); Platelet Count 132 K/mm3 (150-400); RDW Coefficient Variation 14.2 % (11.7-14.2); RDW Standard Deviation 57.6 fL (35.1-46.3); Red Blood Cell Count 5.01 M/mm3 (4.30-5.90); White Blood Cell Count 6.92 K/mm3 (4.00-11.30)
[2022-05-30 04:26] LABS: Blood Urea Nitrogen 16 mg/dL (8-24); Bun/Creatinine Ratio 32.3 (12.0-20.0); Calcium, Blood 8.6 mg/dL (8.5-10.1); Chloride, Blood 98 mmol/L (98-108); Glomerular Filtration Rate 116 (60-); Glucose, Blood 123 mg/dL (70-99); Potassium, Blood 4.4 mmol/L (3.5-5.5); Sodium, Blood 143 mmol/L (136-145)
[2022-05-30 04:45] LABS: Anion Gap Unable to Calculate mmol/L (6-16); CO2, Blood >45 mmol/L (21-32)
[2022-05-30 05:15] LABS: PO2 Arterial 68.5 mmHg (80-100); pH Blood Arterial 7.31 (7.35-7.45)
[2022-05-30 06:31] LABS: PCO2 Arterial 96 mmHg (35-45)
--- NOTE | 2022-05-30 06:34 | NUR ---
SUMMARY: NO ACUTE EVENTS OVERNIGHT NEURO/PSYCH/MOBILITY: PT IS A&O, DIFFICULT TO UNDERSTAND AT TIMES. ABLE TO REPOSITION SELF IN BED, EAT INDEPENDENTLY, AND PERFORM MOST ADL'S. PT BECOMES RESTLESS AND AGGITATED WITH TRILOGY MASK. PRECEDEX INFUSING 0.9, ATIVAN AND HALDOL GIVEN PRN FOR ANXIETY. PT WAS COMPLIANT AND PLEASANT. RESTED COMFORTABLY TOWARDS THE END OF SHIFT. RESP: LUNGS ARE CLEAR AND DIMINISHED THROUGHOUT. PT HAS A PRODUCTIVE COUGH AT TIMES. [place] PLACED TRILOGY MASK W/4L BLEED IN O2, TV 370. WHEN PT BECOMES AGGITATED W/MASK HE IS PLACED ON NC 4L UNTIL MASK IS PUT BACK ON. PT HAS MAINTAINED SPO2 >90% BUT DESATS TO LOW 80'S WHEN ANXIOUS AND MOVING. CARDIAC: CONTINUOUS CARDIAC MONITORING. HR 90-110'S. SBP 100-110'S. EDEMA BLE. GI: NO CHANGES FROM INITIAL ASSESSMENT. : 3600MLS URINE OP THROUGHOUT SHIFT. SKIN: ASSESSMENT REMAINS UNCHANGED.
--- NOTE | 2022-05-30 07:30 | NUR ---
ASSUMED CARE. PT RESTING IN BED, RR EVEN & UNLABORED. +BiPAP, PT TOLERATING WELL. PER PREVIOUS RN, PT HAD MUCH DIFFICULTY T/O THE NIGHT TOLERATING BiPAP & REQUIRED MULTIPLE PRN MEDS R/T ANXIETY. HE APPEARS RESTFUL NOW. BiPAP IS THE PRIORITY, WILL HOLD BREAKFAST TRAY & PO MEDS UNTIL PT AWAKES OR NO LONGER TOLERATES BiPAP MASK. PRECEDEX @ 0.9mcg/kg/hr.
--- NOTE | 2022-05-30 07:30 | NUR ---
ASSUMED CARE. PT RESTING IN BED, RR EVEN & UNLABORED. +CPAP, PT TOLERATING WELL. PER PREVIOUS RN, PT HAD MUCH DIFFICULTY T/O THE NIGHT TOLERATING CPAP & REQUIRED MULTIPLE PRN MEDS R/T ANXIETY. HE APPEARS RESTFUL NOW. CPAP IS THE PRIORITY, WILL HOLD BREAKFAST TRAY & PO MEDS UNTIL PT AWAKES OR NO LONGER TOLERATES CPAP MASK. PRECEDEX @ 0.9mcg/kg/hr.
--- NOTE | 2022-05-30 10:47 | NUR ---
UPDATE: PT AWAKE. PLACED IN HIGH FOWLERS & GIVEN BREAKFAST TRAY. 100% EATEN. PT EMPHATIC ABOUT GOING HOME, STS HE WILL "CRAWL OUT OF HERE". REMAINS COOPERATIVE W/ CARE. GOSMAN ROUNDING, INCREASED PS ON BiPAP FOR TONIGHT. HE EXPLAINS HE IS PLEASED W/ PT's PROCESS HOWEVER HE IS NOT READY FOR DC. PT DOING WELL ON 4L/min NC. PLAN TO GET PT UP TO CHAIR TODAY & DISCUSS PLAN W/ PALLIATIVE CARE.
--- NOTE | 2022-05-30 10:47 | NUR ---
UPDATE: PT AWAKE. PLACED IN HIGH FOWLERS & GIVEN BREAKFAST TRAY. 100% EATEN. PT EMPHATIC ABOUT GOING HOME, STS HE WILL "CRAWL OUT OF HERE". REMAINS COOPERATIVE W/ CARE. GOSMAN ROUNDING, INCREASED PS ON CPAP FOR TONIGHT. HE EXPLAINS HE IS PLEASED W/ PT's PROCESS HOWEVER HE IS NOT READY FOR DC. PT DOING WELL ON 4L/min NC. PLAN TO GET PT UP TO CHAIR TODAY & DISCUSS PLAN W/ PALLIATIVE CARE.
--- NOTE | 2022-05-30 12:17 | NUR ---
UPDATE: TRANSFER FROM BED TO CHAIR W/ ONLY STANDBY ASSIST. SOMEWHAT DYSPNEIC W/ ACTIVITY THOUGH NO DEC IN O2 SAT. RT @ BEDSIDE TO ADMIN BREATHING Tx. PROVIDED W/ LUNCH TRAY. TLSIRI @ BEDSIDE FOR AM ROUNDS. PT BECOMES INCREASINGLY FRUSTRATED THAT HE WILL NOT BE DC'd TODAY. RON ABLE TO GIVE THOROUGH EDUCATION ON WHY PT IS TOO ILL TO BE DC'd HOWEVER HE IS WELCOME TO LEAVE AMA & RISK WORSENING CONDITION & . HE APPEARS RECEPTIVE & RELENTS TO STAYING; FAMILY @ BEDSIDE ALSO PARTICIPATES, STATING THEY WANT THE PT TO RECEIVE FULL CARE UNTIL HE IS WELL. PLAN FOR BED BATH SHORTLY. PRECEDEX 0.5mcg/kg/hr
--- NOTE | 2022-05-30 13:26 | NUR ---
PT UNABLE TO TOLERATING SITTING IN CHAIR FOR MORE THAN 1hr. ASSISTED BACK TO BED W/OUT INCIDENT. EDUCATED ON THE IMPORTANCE OF INCREASING TOLERANCE FOR MOVEMENT & GETTING OUT OF BED TO IMPROVE LUNG Fx. NO EVIDENCE OF LEARNING, PT DOES NOT APPEAR RECEPTIVE. REPOSITIONED FOR COMFORT, DYSPNEA @ REST CONTINUES BUT APPEARS UNCHANGED.
--- NOTE | 2022-05-30 15:00 | NUR ---
UPDATE: PT MOOD & MOTIVATION IMPROVEMENT. SPEECH, OT, & PT VISITED PT TODAY. HE FULLY PARTICIPATED IN ALL THERAPIES, PERFORMING ADLs INDEPENDENTLY & AMBULATING INTO HALLWAY & IN THE ROOM. HE APPEARED TO BE IN BETTER SPIRITS; AMICABLE W/ STAFF & RECEPTIVE TO EDUCATION. SEE THERAPY NOTATIONS FOR FULL DESCRIPTION OF THERAPIES.
--- NOTE | 2022-05-30 19:15 | NUR ---
ASSUMED CARE OF PT @1900. PT IS ALERT, ORIENTED, AND PLEASANT. CONTINUOUS PULVERIZER TENDER. HR 100-110, SBP 110-120. 6L O2 VIA NC. CHAVEZ CATH IN PLACE AND DRAINING TO GRAVITY.
[2022-05-31 05:52] LABS: BASOPHILS ABSOLUTE AUTO 0.04 K/mm3 (0.00-0.23); BASOPHILS PERCENT AUTO 1 % (0-2); EOSINOPHILS ABSOLUTE AUTO 0.42 K/mm3 (0.00-0.68); EOSINOPHILS PERCENT AUTO 5 % (0-6); Hematocrit 53.2 % (37.0-53.0); Hemoglobin 16.2 g/dL (13.5-17.5); IMMATURE GRAN ABSOLUTE AUTO 0.02 K/mm3 (0.00-0.10); IMMATURE GRAN PERCENT AUTO 0 % (0-1); LYMPHOCYTES ABSOLUTE AUTO 1.26 K/mm3 (0.84-5.20); LYMPHOCYTES PERCENT AUTO 15 % (21-46); MONOCYTES ABSOLUTE AUTO 0.64 K/mm3 (0.16-1.47); MONOCYTES PERCENT AUTO 8 % (4-13); Mean Corpuscular HGB 32.7 pg (26.0-34.0); Mean Corpuscular HGB Conc 30.5 g/dL (31.5-36.5); Mean Corpuscular Volume 108 fL (80-100); NEUTROPHILS ABSOLUTE AUTO 5.96 K/mm3 (1.96-9.15); NEUTROPHILS PERCENT AUTO 72 % (41-73); Platelet Count 160 K/mm3 (150-400); RDW Coefficient Variation 14.6 % (11.7-14.2); RDW Standard Deviation 58.7 fL (35.1-46.3); Red Blood Cell Count 4.95 M/mm3 (4.30-5.90); White Blood Cell Count 8.34 K/mm3 (4.00-11.30)
--- NOTE | 2022-05-31 05:55 | NUR ---
SUMMARY: NO ACUTE EVENTS OVERNIGHT. PT EXPERIENCED SOME ANXIETY AT BEDTIME WITH THE TRILOGY MASK. SEROQUEL AND HALDOL GIVEN. PT WAS PLEASANT AND COOPERATIVE. WORE TRILOGY MASK W/SHORT BREAKS FOR ORAL CARE AND PO LIQUIDS. SPO2 >88%. RR 20-30'S. HR 90'S AT REST, 110-120'S W/EXERTION. SBP 110-120'S. PRECEDEX REMAINED ON SB. ASSESSMENTS REMAIN UNCHANGED FROM BEGINNING OF SHIFT.
[2022-05-31 05:57] LABS: PCO2 Arterial 91.2 mmHg (35-45); PO2 Arterial 75.7 mmHg (80-100)
[2022-05-31 06:08] LABS: Bun/Creatinine Ratio 42.8 (12.0-20.0); Calcium, Blood 8.8 mg/dL (8.5-10.1); Creatinine, Blood 0.4 mg/dL (0.60-1.20); Potassium, Blood 4.3 mmol/L (3.5-5.5)
--- NOTE | 2022-05-31 08:00 | NUR ---
UPDATE: JAVIER ROUNDING JAVIER @ BEDSIDE FOR AM ROUNDS. PT REFUSES TO ALLOW JAVIER TO SPEAK UNINTERRRUPTED. HE CONTINUES TO SAY "LET ME SIGN WHATEVER, I'M LEAVING. STOP TALKING, I'M NOT EVEN LISTENING". PT PULLS AT EQUIPMENT, BEHAVIORS ESCALATING. JAVIER DESCRIBED RISK vs BENEFITS OF LEAVING AMA, INCLUDING . SHE EXPLAINS HIS FULL CODE STATUS PT STS HE "DOESN'T CARE IF I DROP " "I WANT TO SIGN WHAT EVER SO I DON'T GET ANY OF THAT, IF I , I ". PT's SON ARRIVES @ BEDSIDE TO TAKE PT HOME.
--- NOTE | 2022-05-31 10:30 | NUR ---
PT IS MORE CALM, APPEARS MORE RECEPTIVE TO EDUCATION. GIVEN THOROUGH EDUCATION ON THE IMPORTANCE OF WEARING BiPAP @ NIGHT, TAKING ALL RX's PRESCRIBED, & RETURNING TO ED IF WORSE IN ANY WAY. PT & SON VERB UNDERSTANDING. PT SIGNS AMA FORM. HE IS SPEAKING IN FULL SENTENCES, FOLLOWING COMMANDS, & APPROPRIATELY INTERACTIVE.HE DOES NOT APPEAR CONFUSED OR ALTERED. @ THIS TIME PT IS ON 4L/min NC W/ SPO2 90%. ON RA SATS DROP TO LOW 80s. PT STS HE DOES NOT HAVE O2 @ HOME, HE WILL NOT BE ABLE TO UTILIZE THE BiPAP @ HOME. [facility] CALLED, DR GARCIA REVIEWS CASE & PT WILL HAVE HOME 02 EVAL BEFORE HE LEAVES. WOOD CRAFTSMAN @ BEDSIDE TO ASSIST, SHE ALSO ENCOURAGES PT TO STAY & RECEIVE Tx UNTIL FULLY WELL, HIS PLAN TO LEAVE AMA REMAINS UNCHANGED.
--- NOTE | 2022-05-31 10:36 | NUR ---
HOME O2 EVAL COMPLETED W/ RT GABBI. PT REQUIRED 6L/min @ REST & 12L/min W/ AMBULATION. NEDITA UPDATED, O2 ORDER PLACED. PT & SON STATE THEY WILL NOT WAIT FOR [facility] TO BRING O2 TANK, THEY ARE EMPHATIC ABOUT LEAVING RIGHT NOW. AFTER REPEATED ENCOURAGEMENT & EDUCATION, PT APPEARS TO UNDERSTAND THAT HE MUST BE ON O2 @ ALL TIMES UNTIL HE IS WELL. SON STS HE WILL LEAVE TO GO GET A RELATIVE'S O2 TANK, SON DISCOURAGED BY STAFF BUT LEAVES THE DEPT.
== END 2022-05-31 11:31 | disposition left against medical advice (07) | DRG 871 ==
LOC: ER 12:10 → ICUW 14:49 → ICUE 14:49 → PCU 14:49 → ICUW 22:22 → PCU 05-20 17:13 → ICUE 05-22 09:26
PROVIDERS: Emergency Medicine; Internal Medicine; Internal Medicine Critical Care Medicine; ADMIT Internal Medicine
PROC: 5A09357 Assistance with Respiratory Ventilation, Less than 24 Consecutive Hours, Continuous Positive Airway Pressure (ICD-10-PCS; principal; 2022-05-19)
PROC: 02HV33Z Insertion of Infusion Device into Superior Vena Cava, Percutaneous Approach (ICD-10-PCS; 2022-05-19)
DX: A41.01 Sepsis due to Methicillin susceptible Staphylococcus aureus (principal); G92.8 Other toxic encephalopathy; J96.22 Acute and chronic respiratory failure with hypercapnia; J96.21 Acute and chronic respiratory failure with hypoxia; J15.211 Pneumonia due to Methicillin susceptible Staphylococcus aureus; N39.0 Urinary tract infection, site not specified; E87.2 Acidosis; E66.2 Morbid (severe) obesity with alveolar hypoventilation; M62.82 Rhabdomyolysis; A40.9 Streptococcal sepsis, unspecified; R65.20 Severe sepsis without septic shock; R45.1 Restlessness and agitation; F17.200 Nicotine dependence, unspecified, uncomplicated; E87.5 Hyperkalemia; F15.10 Other stimulant abuse, uncomplicated; D75.1 Secondary polycythemia; Z20.822 Contact with and (suspected) exposure to COVID-19
CPT/HCPCS: 0241U; 36415; 36569; 36600; 51702; 70450; 71045; 71046; 80048; 80053; 80069; 81001; 82330; 82550; 82553; 82668; 82803; 82947; 83605; 83735; 83880; 84100; 84132; 84145; 84436; 84443; 84484; 85014; 85018; 85025; 85027; 87040; 87070; 87077; 87086; 87147; 87186; 87205; 92526; 92610; 93005; 93010; 93306; 94640; 94660; 94664; 94760; 94761; 94762; 96365; 96367; 96375; 97110; 97116; 97162; 97166; 97530; 97535; 99291-25; A9270; C1751; G0480; J0295; J0456; J0690; J0696; J1630; J1650; J1956; J2060; J2543; J2920; J3370; J3411; J7030; J7050; J7060; J7120

== ENCOUNTER 2022-06-01 10:25 | Emergency (ER) | payer OTHER ==
[~2022-06-01] VITALS: Ht 182.9 cm; Wt 142.9 kg
[2022-06-01 11:21] LABS: BASOPHILS ABSOLUTE AUTO 0.05 K/mm3 (0.00-0.23); BASOPHILS PERCENT AUTO 1 % (0-2); EOSINOPHILS ABSOLUTE AUTO 0.24 K/mm3 (0.00-0.68); EOSINOPHILS PERCENT AUTO 3 % (0-6); Hemoglobin 17.9 g/dL (13.5-17.5); IMMATURE GRAN ABSOLUTE AUTO 0.02 K/mm3 (0.00-0.10); IMMATURE GRAN PERCENT AUTO 0 % (0-1); LYMPHOCYTES ABSOLUTE AUTO 0.94 K/mm3 (0.84-5.20); LYMPHOCYTES PERCENT AUTO 12 % (21-46); MONOCYTES ABSOLUTE AUTO 0.59 K/mm3 (0.16-1.47); MONOCYTES PERCENT AUTO 8 % (4-13); Mean Corpuscular HGB 32.3 pg (26.0-34.0); Mean Corpuscular HGB Conc 29.4 g/dL (31.5-36.5); Mean Corpuscular Volume 110 fL (80-100); Mean Platelet Volume 10.7 fL (9.1-12.4); NEUTROPHILS PERCENT AUTO 77 % (41-73); Platelet Count 172 K/mm3 (150-400); RDW Coefficient Variation 14.5 % (11.7-14.2); RDW Standard Deviation 60.3 fL (35.1-46.3); Red Blood Cell Count 5.55 M/mm3 (4.30-5.90); White Blood Cell Count 7.84 K/mm3 (4.00-11.30)
[2022-06-01 11:22] LABS: Hematocrit 60.9 % (37.0-53.0)
[2022-06-01 11:33] LABS: Albumin/Globulin Ratio 0.7 (0.8-1.8); Bilirubin, Total 0.3 mg/dL (0.1-1.0); Bun/Creatinine Ratio 57.1 (12.0-20.0); Calcium, Blood 8.9 mg/dL (8.5-10.1); Creatinine, Blood 0.33 mg/dL (0.60-1.20); Globulin, Blood 4.3 g/dL (2.2-4.0); Potassium, Blood 4.6 mmol/L (3.5-5.5); Total Protein, Blood 7.3 g/dL (6.4-8.2)
[2022-06-01 12:00] LABS: Base Excess Venous 19.1 mmol/L; Bicarbonate Venous 37.3 mmol/L (24.0-30.0); PCO2 Venous 93.3 mmHg (38-42)
[2022-06-01 12:46] LABS: Influenza A, PCR NEGATIVE (NEGATIVE); Influenza B, PCR NEGATIVE (NEGATIVE); Resp Syncytial Virus, PCR NEGATIVE (NEGATIVE); SARS-Cov-2 (COVID-19) PCR, MMC NEGATIVE (NEGATIVE)
[2022-06-01 14:46] LABS: U Amphetamine Screen DETECTED; U Barbituate Screen Not Detected; U Benzodiazapine Screen DETECTED; U Cocaine Screen Not Detected; U Methamphetamine Screen DETECTED; U Opiates Screen DETECTED
[2022-06-01 14:47] LABS: U Buprenorphine Screen Not Detected; U Cannabinoids Screen Not Detected; U Methadone Screen Not Detected; U Oxycodone Screen Not Detected; U Phencyclidine Screen Not Detected; U Propoxyphene Screen Not Detected
== END 2022-06-01 17:00 | disposition other institution (70) ==
LOC: ER 10:25
PROVIDERS: Internal Medicine; Student in an Organized Health Care Education/Training Program
DX: J96.21 Acute and chronic respiratory failure with hypoxia (principal); J96.22 Acute and chronic respiratory failure with hypercapnia; E87.29 Other acidosis; J44.1 Chronic obstructive pulmonary disease with (acute) exacerbation; I51.7 Cardiomegaly; G47.33 Obstructive sleep apnea (adult) (pediatric); F19.10 Other psychoactive substance abuse, uncomplicated; J18.9 Pneumonia, unspecified organism; F17.210 Nicotine dependence, cigarettes, uncomplicated; Z20.822 Contact with and (suspected) exposure to COVID-19
CPT/HCPCS: 0241U; 36415; 71046; 80053; 82803; 83605; 83880; 84484; 85025; 93005; 93010; 94660; 96374; 99285-25; G0480; J0690

== ENCOUNTER 2022-06-02 23:24 | Inpatient (IN) | payer OTHER ==
[~2022-06-02] VITALS: Ht 182.9 cm; Wt 158.8 kg
[2022-06-03 00:24] LABS: PO2 Arterial 92.9 mmHg (80-100); pH Blood Arterial 7.22 (7.35-7.45)
[2022-06-03 00:25] LABS: PCO2 Arterial > 105 mmHg (35-45)
[2022-06-03 01:43] LABS: BASOPHILS ABSOLUTE AUTO 0.09 K/mm3 (0.00-0.23); BASOPHILS PERCENT AUTO 1 % (0-2); EOSINOPHILS ABSOLUTE AUTO 0.21 K/mm3 (0.00-0.68); EOSINOPHILS PERCENT AUTO 2 % (0-6); Hemoglobin 17.3 g/dL (13.5-17.5); IMMATURE GRAN ABSOLUTE AUTO 0.07 K/mm3 (0.00-0.10); IMMATURE GRAN PERCENT AUTO 1 % (0-1); LYMPHOCYTES ABSOLUTE AUTO 1.05 K/mm3 (0.84-5.20); LYMPHOCYTES PERCENT AUTO 12 % (21-46); MONOCYTES ABSOLUTE AUTO 0.56 K/mm3 (0.16-1.47); MONOCYTES PERCENT AUTO 6 % (4-13); Mean Corpuscular HGB 32.8 pg (26.0-34.0); Mean Corpuscular HGB Conc 29.7 g/dL (31.5-36.5); Mean Corpuscular Volume 110 fL (80-100); Mean Platelet Volume 10.2 fL (9.1-12.4); NEUTROPHILS ABSOLUTE AUTO 6.79 K/mm3 (1.96-9.15); NEUTROPHILS PERCENT AUTO 77 % (41-73); Platelet Count 182 K/mm3 (150-400); RDW Coefficient Variation 14.4 % (11.7-14.2); RDW Standard Deviation 59.9 fL (35.1-46.3); Red Blood Cell Count 5.28 M/mm3 (4.30-5.90); White Blood Cell Count 8.77 K/mm3 (4.00-11.30)
[2022-06-03 02:02] LABS: Ethanol (Alcohol), Blood, Med <3 mg/dL; Hematocrit 58.2 % (37.0-53.0)
[2022-06-03 02:04] LABS: Alanine Aminotransfer (ALT/SGP 26 U/L (12-78); Albumin/Globulin Ratio 0.7 (0.8-1.8); Alk Phos 103 U/L (50-136); Anion Gap Unable to Calculate mmol/L (6-16); Aspartate Aminotrans (AST/SGOT 28 U/L (12-37); Bilirubin, Total 0.2 mg/dL (0.1-1.0); Blood Urea Nitrogen 20 mg/dL (8-24); Bun/Creatinine Ratio 53.3 (12.0-20.0); CO2, Blood >45 mmol/L (21-32); Chloride, Blood 93 mmol/L (98-108); Creatinine, Blood 0.38 mg/dL (0.60-1.20); Globulin, Blood 4.3 g/dL (2.2-4.0); Glomerular Filtration Rate 126 (60-); Glucose, Blood 110 mg/dL (70-99); Potassium, Blood 4.5 mmol/L (3.5-5.5); Sodium, Blood 140 mmol/L (136-145); Total Protein, Blood 7.3 g/dL (6.4-8.2)
--- NOTE | 2022-06-03 04:05 | NUR ---
Assumed care of pt, report received. Pt is resting quietly reclining in bed with bipap mask in place, 20/04 BUR 18, current resp rate 22-24/min, tidal volumes near 500, FiO2 50% sats mid 90s, lungs dim throughout. Pt rouses to verbal stimuli however does not answer questions states "leave me the fuck alone!" and raises right hand at this RN. Pt is instructed that hitting is inappropriate and to put hand down, complies at this time. HRR, sinus tach on monitor, rate low 100s, pressures maintaining stable at this time, will cont to monitor, pt again declines to answer assessment queries citing that he just wants to be left alone. will cont to monitor.
[2022-06-03 04:22] LABS: PO2 Arterial 86.1 mmHg (80-100); pH Blood Arterial 7.32 (7.35-7.45)
[2022-06-03 04:23] LABS: PCO2 Arterial 94.6 mmHg (35-45)
--- NOTE | 2022-06-03 06:48 | NUR ---
PT CONTINUES TO RAISE FIST AND GRIMACE AT THIS RN WITH SHOULDER SHAKE AND SPOKEN NAME. WILL DISCUSS WITH DR CONLEY.
[2022-06-03 08:18] LABS: BASOPHILS ABSOLUTE AUTO 0.06 K/mm3 (0.00-0.23); BASOPHILS PERCENT AUTO 1 % (0-2); EOSINOPHILS ABSOLUTE AUTO 0.11 K/mm3 (0.00-0.68); EOSINOPHILS PERCENT AUTO 1 % (0-6); Hemoglobin 17.5 g/dL (13.5-17.5); IMMATURE GRAN ABSOLUTE AUTO 0.04 K/mm3 (0.00-0.10); IMMATURE GRAN PERCENT AUTO 0 % (0-1); LYMPHOCYTES PERCENT AUTO 10 % (21-46); MONOCYTES ABSOLUTE AUTO 0.19 K/mm3 (0.16-1.47); MONOCYTES PERCENT AUTO 2 % (4-13); Mean Corpuscular HGB 32.3 pg (26.0-34.0); Mean Corpuscular HGB Conc 29.6 g/dL (31.5-36.5); Mean Corpuscular Volume 109 fL (80-100); Mean Platelet Volume 10.4 fL (9.1-12.4); NEUTROPHILS ABSOLUTE AUTO 7.85 K/mm3 (1.96-9.15); NEUTROPHILS PERCENT AUTO 86 % (41-73); Platelet Count 185 K/mm3 (150-400); RDW Coefficient Variation 14.4 % (11.7-14.2); Red Blood Cell Count 5.42 M/mm3 (4.30-5.90); White Blood Cell Count 9.15 K/mm3 (4.00-11.30)
[2022-06-03 08:20] LABS: Hematocrit 59.1 % (37.0-53.0)
[2022-06-03 08:33] LABS: Alanine Aminotransfer (ALT/SGP 23 U/L (12-78); Albumin, Blood 3.1 g/dL (3.4-5.0); Albumin/Globulin Ratio 0.8 (0.8-1.8); Alk Phos 100 U/L (50-136); Anion Gap Unable to Calculate mmol/L (6-16); Aspartate Aminotrans (AST/SGOT 19 U/L (12-37); Bilirubin, Total 0.3 mg/dL (0.1-1.0); Blood Urea Nitrogen 20 mg/dL (8-24); Bun/Creatinine Ratio 46.8 (12.0-20.0); Calcium, Blood 9.4 mg/dL (8.5-10.1); Chloride, Blood 96 mmol/L (98-108); Creatinine, Blood 0.43 mg/dL (0.60-1.20); Globulin, Blood 3.9 g/dL (2.2-4.0); Glomerular Filtration Rate 121 (60-); Glucose, Blood 126 mg/dL (70-99); Potassium, Blood 4.4 mmol/L (3.5-5.5); Sodium, Blood 139 mmol/L (136-145)
[2022-06-03 08:34] LABS: CO2, Blood >45 mmol/L (21-32)
[2022-06-03 09:00] LABS: U Amphetamine Screen DETECTED; U Barbituate Screen Not Detected; U Benzodiazapine Screen DETECTED; U Buprenorphine Screen Not Detected; U Cannabinoids Screen DETECTED; U Cocaine Screen Not Detected; U Methadone Screen Not Detected; U Methamphetamine Screen Not Detected; U Opiates Screen DETECTED; U Oxycodone Screen Not Detected; U Phencyclidine Screen Not Detected; U Propoxyphene Screen Not Detected
[2022-06-03 12:24] LABS: PCO2 Arterial > 105 mmHg (35-45); PO2 Arterial 88.6 mmHg (80-100); pH Blood Arterial 7.29 (7.35-7.45)
[2022-06-03 16:08] LABS: Base Excess Venous 23.5 mmol/L; Bicarbonate Venous 41.1 mmol/L (24.0-30.0); PCO2 Venous 86.5 mmHg (38-42); PO2 Venous 57.8 mmHg (38-42); pH Blood Venous 7.36 (7.34-7.37)
--- NOTE | 2022-06-03 19:22 | NUR ---
PATIENT ARRIVED TO THE UNIT ROUGHLY AROUND 1840. SET OF VITALS WERE TAKEN, PATIENT WAS CLEANED, FRESH LINEN. BIPAP PLACED AND SPO2>93% PATIEN TCOMFORTABLE NO CHES OSWALDO CHRISTIANSON WILL CONTINUE TO MONITOR UNTIL SHIFT CHANGE NO CONCERNS FROM THIS RN AT THIS TIME.
--- NOTE | 2022-06-03 20:30 | NUR ---
CARE ASSUMPTION: PATIENT ASLEEP WITH BIPAP IN PLACE, AROUSES TO VERBAL STIMULI. A&O X3, LUNG SOUNDS DIM T/O, SLOW TO FOLLOW DIRECTIONS. EXCORIATIONS ON HANDS AND SCABBING ON LEFT ARM NOTED. CHAVEZ DRAINING TO GRAVITY. BED LOW WITH CALL LIGHT IN REACH.
--- NOTE | 2022-06-04 03:35 | NUR ---
ADMISSION HX COMPLETE. PATIENT DENIES MEDICATION HX. PATIENT TO CT AT 2130 AND RETURNED TO ROOM. NO ADVERSE EVENTS AT THIS TIME.
[2022-06-04 04:35] LABS: BASOPHILS ABSOLUTE AUTO 0.02 K/mm3 (0.00-0.23); BASOPHILS PERCENT AUTO 0 % (0-2); EOSINOPHILS ABSOLUTE AUTO 0.01 K/mm3 (0.00-0.68); EOSINOPHILS PERCENT AUTO 0 % (0-6); Hematocrit 53.9 % (37.0-53.0); Hemoglobin 16.4 g/dL (13.5-17.5); IMMATURE GRAN ABSOLUTE AUTO 0.04 K/mm3 (0.00-0.10); IMMATURE GRAN PERCENT AUTO 0 % (0-1); LYMPHOCYTES ABSOLUTE AUTO 0.65 K/mm3 (0.84-5.20); LYMPHOCYTES PERCENT AUTO 6 % (21-46); MONOCYTES ABSOLUTE AUTO 0.48 K/mm3 (0.16-1.47); MONOCYTES PERCENT AUTO 4 % (4-13); Mean Corpuscular HGB 32.2 pg (26.0-34.0); Mean Corpuscular HGB Conc 30.4 g/dL (31.5-36.5); Mean Corpuscular Volume 106 fL (80-100); Mean Platelet Volume 10.4 fL (9.1-12.4); NEUTROPHILS ABSOLUTE AUTO 9.64 K/mm3 (1.96-9.15); NEUTROPHILS PERCENT AUTO 89 % (41-73); Platelet Count 221 K/mm3 (150-400); RDW Coefficient Variation 13.8 % (11.7-14.2); RDW Standard Deviation 54.6 fL (35.1-46.3); Red Blood Cell Count 5.09 M/mm3 (4.30-5.90); White Blood Cell Count 10.84 K/mm3 (4.00-11.30)
[2022-06-04 04:57] LABS: Albumin, Blood 2.8 g/dL (3.4-5.0); Albumin/Globulin Ratio 0.7 (0.8-1.8); Bilirubin, Total 0.4 mg/dL (0.1-1.0); Bun/Creatinine Ratio 49.1 (12.0-20.0); Creatinine, Blood 0.39 mg/dL (0.60-1.20); Potassium, Blood 4.4 mmol/L (3.5-5.5); Total Protein, Blood 6.8 g/dL (6.4-8.2)
--- NOTE | 2022-06-04 05:27 | NUR ---
SHIFT SUMMARY: PATIENT VS WNL, SOB WITH EXERTION, CHAVEZ DRAINING TO GRAVITY, NO N/V/D OR CHEST PAIN. MOOD IS LABILE THOUGH PATIENT HAS BECOME MORE COOPERATIVE T/O SHIFT. ADMISSION HX COMPLETE - PATIENT DENIES ETOH HX, STATES HE USES MARIJUANA "DAILY" AND DENIES ILLICIT DRUG USE. BIPAP REMAINED IN PLACE MOST OF THE SHIFT WITH A SHORT BREAK TO EAT ~0100. NC 8-10L TO MAINTAIN O2 SATS >92%. MEDICATED PER EMAR. POWERGLIDE DRAWS AND FLUSHES. CRITICALS CALLED TO RESIDENT AT 0540 - NO NEW ORDERS. BED LOW WITH CALL LIGHT IN REACH. WILL CONTINUE TO MONITOR UNTIL REPORT TO DAY RN.
[2022-06-04 05:31] LABS: PO2 Arterial 85.3 mmHg (80-100); pH Blood Arterial 7.36 (7.35-7.45)
[2022-06-04 05:32] LABS: PCO2 Arterial 80.7 mmHg (35-45)
[2022-06-04 09:05] LABS: Source, Urine Foley catheter
[2022-06-04 09:16] LABS: Appearance, Urine Clear (Clear); Bilirubin, Urine Neg (Neg); Blood, Urine 2+ (Neg); Color, Urine Yellow (P-Yellow); Glucose Qualitative, Urine Neg (Neg); Ketones, Urine Neg (Neg); Leukocyte Esterase, Urine Neg (Neg); Nitrite, Urine Neg (Neg); Protein, Urine 1+ (Neg); Urobilinogen, Urine 1+ (Normal)
[2022-06-04 09:44] LABS: Amorphous Light (0-Heavy); Bacteria Rare /hpf; Squamous Epithelial Cells Not Seen /hpf (Few); White Blood Cells, Urine 0-2 /hpf (0-5)
--- NOTE | 2022-06-04 18:38 | NUR ---
SHIFT SUMMARY PT DESATURATES WHEN EATING; COACHED ON SLOWING DOWN HIS EATING AND BREATHING BETWEEN BITES. PT PUT ON 7L BY HIGH FLOW CANNULA AND UP IN RECLINER. SATURATIONS AROUND 91% ON THE 7L. BIPAP PUT ON BETWEEN MEALS AT SETTINGS OF 18/5 AND 40%. FAMILY CONTINUES TO BRING PT FAST FOOD AND SODAS IN BETWEEN MEALS. PT WITH CHAVEZ INTACT AND DRAINING LARGE AMOUNTS OF YELLOW URINE TO GRAVITY. PT REPORTS LOW BACK PAIN AND MEDICATED X1 WITH IV TORADOL. OCCASIONAL PRODUCTIVE COUGH. SLIGHT SWELLING TO PT'S FEET AND LOWER EXTREMITIES. PT HAS A GENERALIZED RASH THAT HE BELIEVES TO HAVE BEEN THERE SINCE ADMIT. MORBIDLY OBESE BELLY. HE IS A SBA TO THE [facility] BUT MOVES QUICKLY AND REQUIRES INSTRUCTIONS TO PREVENT PULLING ON CORDS/LINES. TELE HAS BEEN SINUS TO SINUS TACH. BP SLIGHTLY ELEVATED - PT REPORTS NO DIAGNOSIS OF HTN BECAUSE "I HAVE NOT BEEN TO A DOCTOR IN 10 YEARS".
--- NOTE | 2022-06-04 23:38 | NUR ---
CARE ASSUMPTION: PATIENT A&O X3, CONFUSED ON DATE, BP STABLE, SINUS TACH, SAT >92% ON 7L HI-FLOW NC. POWERGLIDE PATENT. MEDICATED PER EMAR. PATIENT RESTING IN RECLINER AND STATES HE'D LIKE TO SLEEP THERE IT IS MORE COMFORTABLE. CALL LIGHT IN REACH.
--- NOTE | 2022-06-05 06:09 | NUR ---
SHIFT SUMMARY: PATIENT SLEPT T/O NIGHT IN RECLINER WITH 7L HI-FLOW NC IN PLACE - REFUSED BIPAP. VS WNL, O2 SATS >92%. A&O X3-4. COOPERATIVE WITH CARE AND USES CALL LIGHT APPROPRIATELY. CHAIR ALARM SET - PATIENT SLIDES DOWN IN BED AND CHAIR STATING "IT'S THE MOST COMFORTABLE I'VE BEEN." EDUCATED ON FALL PRECAUTIONS AND REPOSITIONED NEEDED. PATIENT WILL ALSO EAT WHILE LAYING DOWN - MONITORED ACCESS TO HOME FOOD AND REPOSITIONED TO REDUCE ASPIRATION RISK. POWERGLIDE DRAWS AND FLUSHES. CALL LIGHT IN REACH. WILL CONTINUE TO MONITOR AND REPORT TO ONCOMING RN.
[2022-06-05 09:36] LABS: Anion Gap Unable to Calculate mmol/L (6-16); Blood Urea Nitrogen 25 mg/dL (8-24); Bun/Creatinine Ratio 57.2 (12.0-20.0); CO2, Blood 43 mmol/L (21-32); Calcium, Blood 9.2 mg/dL (8.5-10.1); Chloride, Blood 100 mmol/L (98-108); Creatinine, Blood 0.44 mg/dL (0.60-1.20); Glomerular Filtration Rate 121 (60-); Glucose, Blood 179 mg/dL (70-99); Potassium, Blood 4.4 mmol/L (3.5-5.5); Sodium, Blood 142 mmol/L (136-145)
[2022-06-05] MEDS ORDERED: ALBU2.5V5 INH (16:18)
[2022-06-05] MEDS ORDERED: FURO40 PO (16:18)
--- NOTE | 2022-06-05 16:45 | NUR ---
DISCHARGE: SON AT BEDSIDE. PATIENT AND SON VERBALIZE UNDERSTANDING OF DISCHARGE INSTRUCTIONS. POWERGLIDE DC'D CATH INTACT. THIS RN STRESSED THE IMPORTANCE OF OXYGEN AND TRILOGY USE TO PREVENT READMISSION. PT VERBALIZES UNDERSTANDING. PATIENT TO HOME VIA WC WITH SON.
== END 2022-06-05 16:29 | disposition home or self-care (01) | DRG 189 ==
LOC: ER 23:24 → ERHOLD 06-03 03:32 → ICUE 06-03 03:32 → ER 06-03 03:32 → PCU 06-03 03:32
PROVIDERS: Emergency Medicine; Family Medicine; Family Medicine Adult Medicine; ADMIT Family Medicine
PROC: 5A09457 Assistance with Respiratory Ventilation, 24-96 Consecutive Hours, Continuous Positive Airway Pressure (ICD-10-PCS; principal; 2022-06-03)
DX: J96.21 Acute and chronic respiratory failure with hypoxia (principal); G92.9 Unspecified toxic encephalopathy; I67.89 Other cerebrovascular disease; E66.2 Morbid (severe) obesity with alveolar hypoventilation; J44.0 Chronic obstructive pulmonary disease with (acute) lower respiratory infection; J44.1 Chronic obstructive pulmonary disease with (acute) exacerbation; J96.22 Acute and chronic respiratory failure with hypercapnia; F17.200 Nicotine dependence, unspecified, uncomplicated; Z66 Do not resuscitate; I10 Essential (primary) hypertension; E66.9 Obesity, unspecified; D75.1 Secondary polycythemia; F03.90 Unspecified dementia, unspecified severity, without behavioral disturbance, psychotic disturbance, mood disturbance, and anxiety; F15.10 Other stimulant abuse, uncomplicated; R45.1 Restlessness and agitation; Z79.899 Other long term (current) drug therapy
CPT/HCPCS: 36415; 36600; 70450; 71045; 80048; 80053; 81001; 82140; 82803; 83605; 83880; 84145; 84484; 85025; 87040; 93005; 93010; 94640; 94660; 94664; 94761; 94762; 96372-59; 96374; 99291-25; A9270; C1751; G0480; J0456; J0696; J1200; J1650; J1790; J1885; J2060; J2920; J7050

== ENCOUNTER 2022-06-09 19:07 | Inpatient (IN) | payer OTHER ==
[~2022-06-09] VITALS: Ht 188 cm; Wt 154.3 kg
[~2022-06-09 19:07] MED LIST changes: +ALBU2.5V5 INH; +FURO40 PO
[2022-06-09 20:54] LABS: Base Excess Venous 28.2 mmol/L; Bicarbonate Venous 44.2 mmol/L (24.0-30.0); PCO2 Venous 85.9 mmHg (38-42)
[2022-06-09 21:01] LABS: BASOPHILS ABSOLUTE AUTO 0.03 K/mm3 (0.00-0.23); BASOPHILS PERCENT AUTO 0 % (0-2); EOSINOPHILS ABSOLUTE AUTO 0.32 K/mm3 (0.00-0.68); EOSINOPHILS PERCENT AUTO 3 % (0-6); Hemoglobin 18.1 g/dL (13.5-17.5); IMMATURE GRAN ABSOLUTE AUTO 0.06 K/mm3 (0.00-0.10); IMMATURE GRAN PERCENT AUTO 1 % (0-1); LYMPHOCYTES ABSOLUTE AUTO 1.35 K/mm3 (0.84-5.20); LYMPHOCYTES PERCENT AUTO 14 % (21-46); MONOCYTES ABSOLUTE AUTO 0.51 K/mm3 (0.16-1.47); MONOCYTES PERCENT AUTO 5 % (4-13); Mean Corpuscular HGB 32.3 pg (26.0-34.0); Mean Corpuscular Volume 108 fL (80-100); Mean Platelet Volume 9.4 fL (9.1-12.4); NEUTROPHILS PERCENT AUTO 76 % (41-73); Platelet Count 179 K/mm3 (150-400); RDW Coefficient Variation 14.2 % (11.7-14.2); RDW Standard Deviation 58.2 fL (35.1-46.3); White Blood Cell Count 9.57 K/mm3 (4.00-11.30)
[2022-06-09 21:11] LABS: Hematocrit 60.4 % (37.0-53.0)
[2022-06-09 21:13] LABS: Blood Urea Nitrogen 17 mg/dL (8-24); Chloride, Blood 91 mmol/L (98-108); Creatinine, Blood 0.43 mg/dL (0.60-1.20); Glomerular Filtration Rate 121 (60-); Glucose, Blood 124 mg/dL (70-99); Potassium, Blood 5.3 mmol/L (3.5-5.5); Sodium, Blood 141 mmol/L (136-145)
[2022-06-09 21:15] LABS: Anion Gap Unable to Calculate mmol/L (6-16)
[2022-06-09 21:16] LABS: CO2, Blood >45 mmol/L (21-32)
--- NOTE | 2022-06-09 23:55 | NUR ---
ADMISSION REPORT RECIEVED FROM ER NURSE, PATIENT ARRIVES TO PCU, ABLE TO ROLL SELF TO PCU BED WITH MINIMAL ASSISTANCE. PATIENT ARRIVES ON 3L NC, 02 SAT MID 80s. VITALS STABLE, RT AT BEDSIDE SETTING UP CPAP. SON ARRIVES TO ROOM WITH PATIENT. PATIENT ARGUMENTATIVE WITH STAFF AT TIMES, RAISING HIS VOICE AND CUSSING. UNABLE TO REDIRECT PATIENT. PATIENT ROCKING SIDE TO SIDE, PULLING OFF CPAP. CAMERA ON FOR PATIENT SAFETY.
--- NOTE | 2022-06-10 02:26 | NUR ---
UPDATE PATIENT CONTINUING TO BE VERBALLY AGRESSIVE TOWARDS STAFF. PATIENT CONTINUOUSLY PULLING OFF CPAP. REMOTE MONITORING NOTIFYING STAFF THAT PATIENT IS PULLING AT TELE AND REMOVING MASK. PATIENT CONTINUES TO RAISE VOICE AND CUSS AT STAFF. PATIENT ATTEMPTED TO HIT PCT WELL URINATE ON HER WHEN ASSISTING WITH URINAL. DR. HDOGE AT BEDSIDE TO SPEAK WITH PATIENT. PATIENT YELLING AT RESIDENT ABOUT NOT RECIEVING ANY FOOD. RESIDENT TO PLACE ORDERS FOR ZYPREXA.
--- NOTE | 2022-06-10 05:55 | NUR ---
UPDATE/TRANSFER ZYPREXA ADMINISTERED WITH MINIMAL CHANGE IN PATIENT. PATIENT CONTINUED TO BE VERBALLY AGGRESSIVE TOWARDS STAFF AND HAS RAISED FISTS WHEN ATTEMPTING TO DO CARE. RESIDENT ORDERED B52. NO IV ACCESS D/T PATIENT PULLING OUT LINES. PATIENT RIPPED TELE LEADS AND SPO2 MONITOR OFF. PATIENT HAS PURPOSELY URINATED IN BED, EVEN WITH STAFF AT THE BEDSIDE TO GIVE HIM THE URINAL. PATIENT POINTED PENIS AT THIS RN WHILE GIVING URINAL TO HIM AND BEGAN PUSHING URINE OUT. EVS IN ROOM A TOTAL OF FOUR TIMES TO DO MOP UPS REGARDLESS OF PATIENT BEING REMINDED TO USE THE URINAL. NURSING LEAD WAREHOUSE ASSOCIATE AT BEDSIDE TO SPEAK WITH PATIENT. PATIENT YELLED AT NURSING LEAD WAREHOUSE ASSOCIATE. NURSING LEAD WAREHOUSE ASSOCIATE CALLED HOSPITALIST REGARDING PLAN OF CARE FOR PATIENT. PATIENT TRANSFERRED TO ICU. BEDSIDE REPORT GIVEN TO ICU NURSE. MAAD CONSULT ENTERED.
--- NOTE | 2022-06-10 06:03 | NUR ---
ARRIVED TO ICU PATIENT ARRIVED TO ICU 6 FROM PCU. PATIENT WAS ON ROOM AIR AT THE TIME WITH CPAP QUICKLY PLACED UPON ARRIVAL. PATIENT IS AWAKE AND ALERT, RESPONDING TO STAFF. NO IV ACCESS D/T PREVIOUSLY PULLING OUT OWN IV LINE IN PCU. NO MEDICATIONS INF. UPON ARRIVAL PATIENT ATTEMPTED TO HIT STAFF AND YELLING. AFTER EXPLAINING TO PATIENT THAT WE ARE HERE TO HELP, HE CALMED DOWN. ATTEMPTED TO START A NEW IV, BUT UNSUCCESSFUL. BEDSIDE REPORT COMPLETED WITH DU LIU.
--- NOTE | 2022-06-10 09:11 | NUR ---
ASSUMED CARE OF DONITA @ 0700, HE IS ON HIS CPAP MACHINE, SLEEPING SOUNDLY. DR. ESTEBAN IN TO SEE PT AND PT DOESN'T AROUSE. PT SLIDING DOWN IN BED, SO REPOSI- TIONED, ATTEMPTING TO HIT STAFF. BLANKETS WET WITH URINE. SKIN PEELING AND RED IN APPEARANCE, MULTIPLE SMALL SCABS T/O UPPER EXTREMITIES AND CHEST AREA. PT NOT ANSWERING WHEN SPOKEN TO. BY WELL. PT CONTINUES ON THE BIPAP. WILL AWAIT FURTHER CONSULTS R/T BEHAVIOR AND HIS LACK OF COMPLIANCE. MEDS CUR- RENTLY BEING HELD UNTIL SITUATION CHANGES.
--- NOTE | 2022-06-10 09:39 | NUR ---
CALL RECEIVED FROM DU DEL ROSARIO IN RISK MANAGEMENT. UPDATE ON PATIENT'S CONDITION GIVEN. THE COMMITTEE WILL BE MEETING IN REGARDS TO HIS CARE AND HIS FREQUENT ADMISSIONS/LEAVING AGAINST MEDICAL ADVICE AND THEN BEING BROUGHT BACK BY THE SON. WILL AWAIT FURTHER INSTRUCTIONS REGARDING TREATMENT.
--- NOTE | 2022-06-10 10:42 | NUR ---
1020--- patient was laying in bed and started peeing out all over himself and in his bed pointing himself in different directions. He had the cpap on. Went into room to redirect him and cover him up since he had pulled the blankets off of himself to pee. Nurse took the cpap off and got him to sit at side of bed. Washed him off with wipe clothes. Asked him to stand to put on underwear brief which he did with coaching to stand up to pull the briefs up. He swung out at staff when they tried to aid and help him up. He stood on his own an did lift his right leg up to put on brief and to pull up brief mostly himself. Then he sat back down on the bed. A recliner chair was brought into the room to have him sit in. He was asked to stand and walk to the recliner which was next to the bed. He stood and took a few steps to the chair and when turned to sit in it he just bent his knees to sit and sat on the floor instead. Security was called to aide in getting him up to the chair since he would not let anyone touch him to help him get off the floor. He was sitting style not he floor. The chair sling was used to lift him up and to the chair with security aiding. He situated himself in the chair once there.
--- NOTE | 2022-06-10 11:44 | NUR ---
DONITA IS IN THE CHAIR, WEARING HIS CPAP DEVICE. HE WAS COVERED BY BLANKETS, BUT HAS NOW REMOVED THEM ALL AND IS SITTING IN THE DEPEND UNDERGARMENT. ALL HIS LEADS AND MONITORS ARE OFF SINCE HIS MOVE TO THE CHAIR.
--- NOTE | 2022-06-10 14:50 | NUR ---
PT IS STILL SLEEPING, HE IS STILL IN THE RECLINER, HIS SON DID VISIT BRIEFLY. HE HASN'T HAD ANY MORE OUTBURSTS. HE DID HAVE A MOMENT WHERE HE WAS SITTING UPRIGHT, NOT RECLINED AND HE WAS RESTLESS, BACK AND FORTH, FIDGETY, THEN HE WAS ABLE TO RECLINE THE CHAIR HIMSELF, PROMPTLY RETURNING TO SLEEP.
--- NOTE | 2022-06-10 15:29 | NUR ---
DONITA ALLOWED ME TO PUT THE MONITORS BACK ON HIM AND ASSIST HIM BACK TO BED. HE TOLERATED IT WELL. WAS ALLOWED TO GET HIS BLOOD PRESSURE WELL. HE IS NOW IN BED, LYING ON HIS LEFT SIDE WITH THE CPAP IN PLACE.
--- NOTE | 2022-06-10 16:06 | NUR ---
PT CONTINUES SLEEPING ON HIS SIDE, NO CHANGES
--- NOTE | 2022-06-10 17:00 | NUR ---
PT'S SON DID BRING IN PT'S TRILOGY FROM HOME. HE SAW THAT HIS DAD WAS SLEEPING AND HE DID NOT GO IN HIS ROOM. SAID HE WOULD COME BACK LATER. DONITA CONTINUES ON HIS LEFT SIDE WITH THE CPAP ON, MONITOR REMAINS ON AND SATS 95%.
--- NOTE | 2022-06-10 17:51 | NUR ---
DONITA CONTINUES TO SLEEP WITH THE CPAP IN PLACE. HE IS IN BED, MONITOR IS ON, HE HAS BEEN CHANGED TO PCU STATUS. HE HAS NOT BEEN AWAKE ENOUGH FOR ANY PO INTAKE. IV MEDS HAVE BEEN HELD NO ACCESS. PT HAS BEEN INCONTINENT X2, TRANSFERRED TO THE CHAIR AND BACK TO BED. HE WAS COOPERATIVE AT THE TRANSFER BACK TO BED AND ALLOWED THE MONITORS TO BE REPLACED. HAS BEEN SLEEPING SINCE THEN.
--- NOTE | 2022-06-10 18:37 | NUR ---
LATE NOTE: REPORT WAS GIVEN TO [facility] ESCOBEDO AND PT WAS TRANSFERRED TO PCU 8. HE WAS AWAKE AND BEING COOPERATIVE DURING TRANSPORT, ASKED APPROPRIATELY TO USE THE URINAL AND ASKED FOR SOMETHING TO DRINK.
--- NOTE | 2022-06-10 19:29 | NUR ---
pt aggitated pulling of leads voiding everywhere. unable to track converstation tries to push people away. Pt very ashen and disheveled, edemetous and labored with dyspnea. Presents as periods of confussion. Nursing cleaned pt up and got him in to a chair with bipap. Was able to talk with pt slowly and reassure pt. Called patient sister to review his care she states he has been falling and hope sleeps most of the time and is somulent. Asked he was confussed she and her daughter stated yes. He used to live with them but required to much care. pt sister sounds very ill herself. Pt niece was able to give most of information. He ahs friends he pays to go to the store and to help him. Suspect they are getting him drugs. Sister states they recently tried getting him a CBD tinctrue to help with the air hunger. Review ot he past six month pt stuck in a cycle of illness and substance abuse or worsenting frailty. Son come out form [facility] to help he has been here a week. Will see if he is going to stay. Pt not able to care for self. At risk for exploitation. Will review with case manger and psychologist social. Did not address code status today with son will follow up. Pt cognative abilities presnet ans declining by his family. He may be better served by hospice care. Will review with team and psychologist social. Reviw with physician his severe aggitation and requested medications to manage his anexiety and air hunger. Kps 30% pt high risk for sudden .
[2022-06-10 21:52] LABS: Base Excess Venous 21.7 mmol/L; Bicarbonate Venous 41.3 mmol/L (24.0-30.0); PCO2 Venous 68.2 mmHg (38-42); pH Blood Venous 7.44 (7.34-7.37)
[2022-06-10 21:58] LABS: Hematocrit 51.9 % (37.0-53.0); Hemoglobin 16.4 g/dL (13.5-17.5); Mean Corpuscular HGB 32.3 pg (26.0-34.0); Mean Corpuscular HGB Conc 31.6 g/dL (31.5-36.5); Mean Platelet Volume 10.2 fL (9.1-12.4); Platelet Count 171 K/mm3 (150-400); RDW Coefficient Variation 14.2 % (11.7-14.2); Red Blood Cell Count 5.08 M/mm3 (4.30-5.90); White Blood Cell Count 9.23 K/mm3 (4.00-11.30)
[2022-06-10 22:01] LABS: Mean Corpuscular Volume 102 fL (80-100)
[2022-06-10 22:37] LABS: Calcium, Blood 9.1 mg/dL (8.5-10.1); Creatinine, Blood 0.5 mg/dL (0.60-1.20); Potassium, Blood 3.6 mmol/L (3.5-5.5)
[2022-06-11 03:52] LABS: BASOPHILS ABSOLUTE AUTO 0.01 K/mm3 (0.00-0.23); BASOPHILS PERCENT AUTO 0 % (0-2); EOSINOPHILS ABSOLUTE AUTO 0.08 K/mm3 (0.00-0.68); EOSINOPHILS PERCENT AUTO 1 % (0-6); Hematocrit 54.7 % (37.0-53.0); IMMATURE GRAN ABSOLUTE AUTO 0.05 K/mm3 (0.00-0.10); IMMATURE GRAN PERCENT AUTO 1 % (0-1); LYMPHOCYTES ABSOLUTE AUTO 0.96 K/mm3 (0.84-5.20); LYMPHOCYTES PERCENT AUTO 13 % (21-46); MONOCYTES ABSOLUTE AUTO 0.27 K/mm3 (0.16-1.47); MONOCYTES PERCENT AUTO 4 % (4-13); Mean Corpuscular HGB 31.7 pg (26.0-34.0); Mean Corpuscular HGB Conc 31.1 g/dL (31.5-36.5); Mean Corpuscular Volume 102 fL (80-100); Mean Platelet Volume 10.4 fL (9.1-12.4); NEUTROPHILS ABSOLUTE AUTO 6.23 K/mm3 (1.96-9.15); NEUTROPHILS PERCENT AUTO 82 % (41-73); Platelet Count 164 K/mm3 (150-400); RDW Coefficient Variation 14.4 % (11.7-14.2); RDW Standard Deviation 54.4 fL (35.1-46.3); Red Blood Cell Count 5.36 M/mm3 (4.30-5.90)
[2022-06-11 03:56] LABS: Base Excess Venous 20.5 mmol/L; PCO2 Venous 67.6 mmHg (38-42); pH Blood Venous 7.43 (7.34-7.37)
[2022-06-11 04:16] LABS: Calcium, Blood 9.1 mg/dL (8.5-10.1); Creatinine, Blood 0.48 mg/dL (0.60-1.20); Potassium, Blood 4.4 mmol/L (3.5-5.5)
[2022-06-11 04:17] LABS: U Amphetamine Screen Not Detected; U Barbituate Screen Not Detected; U Benzodiazapine Screen DETECTED; U Buprenorphine Screen Not Detected; U Cannabinoids Screen DETECTED; U Cocaine Screen Not Detected; U Methadone Screen Not Detected; U Methamphetamine Screen Not Detected; U Opiates Screen Not Detected; U Oxycodone Screen Not Detected; U Phencyclidine Screen Not Detected; U Propoxyphene Screen Not Detected
--- NOTE | 2022-06-11 05:17 | NUR ---
SHIFT SUMMARY PT A&Ox3, PT STATED THAT THE DATE WAS 05/24/22 BUT WAS ABLE TO STATE THAT HE WAS AT [facility]. SpO2> 92% ROTATING BETWEEN 6L NC AND BIPAP WITH 6L BLEED IN. VSS, SINUS 90-110's. PT REMAINED PLEASANT AND COOPERATIVE THROUGHOUT THE SHIFT. NO ACUTE EVENTS THIS SHIFT. WILL REPORT TO DAY SHIFT RN.
--- NOTE | 2022-06-11 05:40 | NUR ---
UPDATE PT JUST YELLED OUT AND GOT VERBALLY AGGRESSIVE WITH STAFF REGARDING HAVING TO USE THE URINAL. PT TOOK OF BIPAP MASK AND REFUSED TO PUT NC ON. PT EASILY REDIRECTED AND CALMED DOWN AFTER VOIDING AND AGREED TO WEARING NC.
--- NOTE | 2022-06-11 09:28 | NUR ---
AMA PT INITIALLY CALM. THEN ANGRY, YELLING AT STAFF & URINATING ON FLOOR. PT STATING "YOUR STAFF HERE IS SHIT!" PT REMOVING TELEMETRY, SPO2 MONITOR & NC & STATING PT IS LEAVING. PT EDUCATED ON NEED FOR O2 & FURTHER CARE. PT DISMISSIVE TO EDUCATION & STAFF ATTEMPT FOR CARE. PT SON ARRIVED W/ NO O2 FOR PT TO GO HOME WITH. PT CHOOSING TO LEAVE AMA WITHOUT O2 DESPITE EDUCATION & CAUTION. PG REMOVED. PT DRESSED HIMSELF & LEFT W/ SON @ APPROX 0920.
== END 2022-06-11 09:20 | disposition left against medical advice (07) | DRG 189 ==
LOC: ER 19:07 → PCU 22:44 → ICUE 22:44 → PCU 23:14 → ICUE 06-10 05:45 → PCU 06-10 18:20
PROVIDERS: Family Medicine; Family Medicine Adult Medicine; Student in an Organized Health Care Education/Training Program; ADMIT Hospitalist
PROC: 5A09357 Assistance with Respiratory Ventilation, Less than 24 Consecutive Hours, Continuous Positive Airway Pressure (ICD-10-PCS; principal; 2022-06-10)
DX: J96.21 Acute and chronic respiratory failure with hypoxia (principal); J44.1 Chronic obstructive pulmonary disease with (acute) exacerbation; E66.2 Morbid (severe) obesity with alveolar hypoventilation; R65.10 Systemic inflammatory response syndrome (SIRS) of non-infectious origin without acute organ dysfunction; G93.1 Anoxic brain damage, not elsewhere classified; Z68.43 Body mass index [BMI] 50.0-59.9, adult; F19.10 Other psychoactive substance abuse, uncomplicated; J96.22 Acute and chronic respiratory failure with hypercapnia; F15.10 Other stimulant abuse, uncomplicated; D75.1 Secondary polycythemia; F17.210 Nicotine dependence, cigarettes, uncomplicated; R73.9 Hyperglycemia, unspecified; R45.1 Restlessness and agitation; Z91.198 Patient's noncompliance with other medical treatment and regimen for other reason; Z91.14 Patient's other noncompliance with medication regimen; Z87.01 Personal history of pneumonia (recurrent); Z79.899 Other long term (current) drug therapy
CPT/HCPCS: 71045; 80048; 82803; 82947; 84484; 85025; 85027; 93005; 93010; 94640; 94644; 94660; 94664; 94762; 99285-25; A9270; C1751; J1200; J1630; J1650; J2060; J2930; J7512

== ENCOUNTER 2022-07-18 23:04 | Inpatient (IN) | payer OTHER ==
[2022-07-21] MEDS ORDERED: Acetaminophen650 M1 PO (14:34)
[2022-07-21] MEDS ORDERED: FAMO20 PO (14:34)
[2022-07-21] MEDS ORDERED: PRED20 PO (14:35)
[2022-07-21] MEDS ORDERED: OSEL75CA PO (14:35)
[2022-07-21] MEDS ORDERED: POTCHL20ER PO (14:35)
== END 2022-07-21 16:19 | disposition home or self-care (01) | DRG 193 ==
DX: J10.1 Influenza due to other identified influenza virus with other respiratory manifestations (principal); J96.21 Acute and chronic respiratory failure with hypoxia; J96.22 Acute and chronic respiratory failure with hypercapnia; E66.2 Morbid (severe) obesity with alveolar hypoventilation; J44.1 Chronic obstructive pulmonary disease with (acute) exacerbation; Z68.41 Body mass index [BMI] 40.0-44.9, adult; E87.6 Hypokalemia; E83.39 Other disorders of phosphorus metabolism; I50.9 Heart failure, unspecified; F17.210 Nicotine dependence, cigarettes, uncomplicated; E87.70 Fluid overload, unspecified; F19.10 Other psychoactive substance abuse, uncomplicated; Z20.822 Contact with and (suspected) exposure to COVID-19; Z79.51 Long term (current) use of inhaled steroids; Z79.01 Long term (current) use of anticoagulants; Z99.81 Dependence on supplemental oxygen